=== PATIENT | female | born 1990 | race Caucasian/White ===

== ENCOUNTER 2018-01-08 17:16 | Emergency (ER) | payer MEDICAID ==
[~2018-01-08] VITALS: Ht 165.1 cm; Wt 166.5 kg
[2018-01-08 17:18] VITALS: BP 150/107
[2018-01-08] MEDS ORDERED: DEXAMETHASONE 4 MG TABLET ONE ×2 (18:17→18:18)
[2018-01-08] MEDS ORDERED: DEXAMETHASONE 4 MG TABLET PO ONE (18:30)
== END 2018-01-08 18:37 | disposition home or self-care (01) ==
LOC: ED 18:31
DX: J02.0 Streptococcal pharyngitis (principal); J45.909 Unspecified asthma, uncomplicated; Z90.49 Acquired absence of other specified parts of digestive tract
CPT/HCPCS: 87081; 87880; 99284

== ENCOUNTER 2018-01-25 12:07 | Emergency (ER) | payer MEDICAID ==
[~2018-01-25] VITALS: Ht 165.1 cm; Wt 165.0 kg
[2018-01-25] MEDS ORDERED: ONDANSETRON 2MG/ML, 2ML IVPush ONE (12:30)
[2018-01-25] MEDS ORDERED: SODIUM CHLORIDE 0.9% 1,000ML IVBOLUS ONE (12:30)
[2018-01-25] MEDS ORDERED: FAMOTIDINE 20 MG/2 ML IVP ONE (12:30)
[2018-01-25] MEDS ORDERED: SODIUM CHLORIDE FLUSH 10ML SYR IVF ONE (12:30)
[2018-01-25] MEDS ORDERED: ONDANSETRON 2MG/ML, 2ML ONE (12:37)
[2018-01-25] MEDS ORDERED: FAMOTIDINE 20 MG/2 ML ONE (12:37)
[2018-01-25 12:46] LABS: BASOPHILS # (AUTO) 0.05 x10^3/uL (0-0.1); BASOPHILS % (AUTO) 0 % (0-1); EOSINOPHILS # (AUTO) 0.26 x10^3/uL (0-0.4); EOSINOPHILS % (AUTO) 2 % (1-7); LYMPHOCYTES # (AUTO) 4.22 x10^3/uL (1-3.4); LYMPHOCYTES % (AUTO) 28 % (22-44); MD NO; MEAN CORPUSCULAR HEMOGLOBIN 26.5 pg (27.0-34.8); MEAN CORPUSCULAR VOLUME 80.3 fL (80-100); MONOCYTES # (AUTO) 0.86 x10^3/uL (0.2-0.8); MONOCYTES % (AUTO) 6 % (2-9); NEUTROPHILS # (AUTO) 9.81 x10^3/uL (1.8-6.8); NEUTROPHILS % (AUTO) 65 % (42-75); PLATELET COUNT 340 x10^3/uL (130-400); RED BLOOD COUNT 5.37 x10^6/uL (3.82-5.3); RED CELL DISTRIBUTION WIDTH 16.7 % (9.6-15.2)
[2018-01-25 12:58] LABS: ALANINE AMINOTRANSFERASE 23 U/L (12-78); ALBUMIN 3.2 g/dL (3.4-5.0); ANION GAP 11 mmol/L (5-15); CALCIUM 9.2 mg/dL (8.5-10.1); CHLORIDE 106 mmol/L (98-107); CREATININE 0.79 mg/dL (0.55-1.02)
[2018-01-25 13:03] LABS: ALKALINE PHOSPHATASE 162 U/L (45-117); BILIRUBIN,TOTAL 0.3 mg/dL (0.2-1.0); TOTAL PROTEIN 7.7 g/dL (6.4-8.2)
[2018-01-25 13:05] LABS: MICROSCOPIC NOT IND
[2018-01-25 13:09] LABS: CULTURE INDICATED? NO
[2018-01-25 13:25] VITALS: BP 126/46
== END 2018-01-25 14:13 | disposition home or self-care (01) ==
LOC: ED 13:30
DX: R10.84 Generalized abdominal pain (principal); R11.2 Nausea with vomiting, unspecified; R19.7 Diarrhea, unspecified
CPT/HCPCS: 36415; 80053; 81003; 83690; 84703; 85025; 93005; 96361; 96374; 96375; 99285; J2405; J7030; S0028

== ENCOUNTER 2018-01-25 20:17 | Emergency (ER) | payer MEDICAID ==
[~2018-01-25] VITALS: Ht 165.1 cm; Wt 168.8 kg
[2018-01-25] MEDS ORDERED: ONDANSETRON 2MG/ML, 2ML IVPush ONE (21:30)
[2018-01-25] MEDS ORDERED: MORPHINE SULFATE 4 MG/ML, 1ML IVPush PRN (21:30)
[2018-01-25 21:35] LABS: BASOPHILS # (AUTO) 0.04 x10^3/uL (0-0.1); BASOPHILS % (AUTO) 0 % (0-1); EOSINOPHILS # (AUTO) 0.18 x10^3/uL (0-0.4); EOSINOPHILS % (AUTO) 1 % (1-7); LYMPHOCYTES # (AUTO) 3.81 x10^3/uL (1-3.4); LYMPHOCYTES % (AUTO) 27 % (22-44); MD NO; MEAN CORPUSCULAR HEMOGLOBIN 26.1 pg (27.0-34.8); MEAN CORPUSCULAR HGB CONC 32.8 g/dL (32.4-35.8); MEAN CORPUSCULAR VOLUME 79.4 fL (80-100); MEAN PLATELET VOLUME 7.9 fL (7.4-10.4); MONOCYTES % (AUTO) 6 % (2-9); NEUTROPHILS % (AUTO) 66 % (42-75); PLATELET COUNT 310 x10^3/uL (130-400); RED BLOOD COUNT 4.76 x10^6/uL (3.82-5.3); RED CELL DISTRIBUTION WIDTH 16.9 % (9.6-15.2)
[2018-01-25 21:45] LABS: ALANINE AMINOTRANSFERASE 20 U/L (12-78); ALBUMIN 2.8 g/dL (3.4-5.0); ANION GAP 8 mmol/L (5-15); CALCIUM 8.8 mg/dL (8.5-10.1); CHLORIDE 107 mmol/L (98-107); CREATININE 0.69 mg/dL (0.55-1.02)
[2018-01-25 21:48] LABS: ALKALINE PHOSPHATASE 137 U/L (45-117); TOTAL PROTEIN 6.7 g/dL (6.4-8.2)
[2018-01-25 21:49] LABS: BILIRUBIN,TOTAL < 0.1 mg/dL (0.2-1.0)
[2018-01-25] MEDS ORDERED: OMNIPAQUE 350 MG/ML, 150 ML BOTTLE ONE (22:00)
[2018-01-25] MEDS ORDERED: ONDANSETRON 2MG/ML, 2ML ONE (22:30)
[2018-01-25] MEDS ORDERED: MORPHINE SULFATE 4 MG/ML, 1ML ONE (22:30)
[2018-01-25 23:27] VITALS: BP 107/68
== END 2018-01-25 23:31 | disposition home or self-care (01) ==
LOC: ED 22:43
DX: R10.31 Right lower quadrant pain (principal); R10.2 Pelvic and perineal pain; R10.32 Left lower quadrant pain; J45.909 Unspecified asthma, uncomplicated; Z90.49 Acquired absence of other specified parts of digestive tract; Z88.8 Allergy status to other drugs, medicaments and biological substances
CPT/HCPCS: 36415; 74177; 80053; 83690; 85025; 96374; 96375; 99285; J2405; Q9967

== ENCOUNTER 2018-04-05 21:23 | Emergency (ER) | payer MEDICAID ==
[~2018-04-05] VITALS: Ht 167.6 cm; Wt 168.0 kg
[2018-04-05 22:21] LABS: BASOPHILS # (AUTO) 0.07 x10^3/uL (0-0.1); BASOPHILS % (AUTO) 1 % (0-1); EOSINOPHILS # (AUTO) 0.19 x10^3/uL (0-0.4); EOSINOPHILS % (AUTO) 1 % (1-7); LYMPHOCYTES # (AUTO) 4.04 x10^3/uL (1-3.4); LYMPHOCYTES % (AUTO) 26 % (22-44); MD NO; MEAN CORPUSCULAR HEMOGLOBIN 26.3 pg (27.0-34.8); MEAN CORPUSCULAR VOLUME 79.7 fL (80-100); MEAN PLATELET VOLUME 7.7 fL (7.4-10.4); MONOCYTES # (AUTO) 0.68 x10^3/uL (0.2-0.8); MONOCYTES % (AUTO) 4 % (2-9); NEUTROPHILS % (AUTO) 68 % (42-75); PLATELET COUNT 321 x10^3/uL (130-400); RED BLOOD COUNT 4.83 x10^6/uL (3.82-5.3); RED CELL DISTRIBUTION WIDTH 17.5 % (9.6-15.2)
[2018-04-05 22:30] LABS: ANION GAP 9 mmol/L (5-15); CALCIUM 8.5 mg/dL (8.5-10.1); CHLORIDE 105 mmol/L (98-107); CREATININE 0.76 mg/dL (0.55-1.02)
[2018-04-05 22:35] LABS: MICROSCOPIC NOT IND
[2018-04-05 22:40] LABS: CULTURE INDICATED? NO
[2018-04-05] MEDS ORDERED: ONDANSETRON ODT 4 MG PO ONE (23:00)
[2018-04-05] MEDS ORDERED: ONDANSETRON ODT 4 MG ONE (23:19)
[2018-04-05 23:40] VITALS: BP 112/72
== END 2018-04-05 23:42 | disposition home or self-care (01) ==
LOC: ED 22:09
DX: R10.31 Right lower quadrant pain (principal); R10.32 Left lower quadrant pain; R11.2 Nausea with vomiting, unspecified; E66.01 Morbid (severe) obesity due to excess calories; J45.909 Unspecified asthma, uncomplicated; F17.210 Nicotine dependence, cigarettes, uncomplicated; Z68.43 Body mass index [BMI] 50.0-59.9, adult
CPT/HCPCS: 36415; 80048; 81003; 82040; 84703; 85025; 99284; Q0162

== ENCOUNTER 2018-04-06 14:39 | Emergency (ER) | payer MEDICAID ==
[~2018-04-06] VITALS: Ht 165.1 cm; Wt 168.0 kg
[2018-04-06] MEDS ORDERED: PROMETHAZINE 25 MG/ML, 1ML ONE (15:10)
[2018-04-06] MEDS ORDERED: KETOROLAC 30 MG/1 ML ONE (15:10)
[2018-04-06] MEDS ORDERED: OXYcodone/APAP 10/325MG TABLET ONE (15:11)
[2018-04-06] MEDS ORDERED: PROMETHAZINE 25 MG/ML, 1ML IM ONE (15:30)
[2018-04-06] MEDS ORDERED: OXYcodone/APAP 10/325MG TABLET PO ONE (15:30)
[2018-04-06] MEDS ORDERED: KETOROLAC 60 MG/2 ML IM ONE (15:30)
[2018-04-06 17:14] VITALS: BP 105/54
== END 2018-04-06 17:16 | disposition home or self-care (01) ==
LOC: ED 16:40
DX: N80.3 Endometriosis of pelvic peritoneum (principal); R10.31 Right lower quadrant pain; G89.29 Other chronic pain; E66.01 Morbid (severe) obesity due to excess calories; J45.909 Unspecified asthma, uncomplicated
CPT/HCPCS: 76830; 96372; 99284; J1885; J2550

== ENCOUNTER 2018-04-21 16:49 | Emergency (ER) | payer MEDICAID ==
[~2018-04-21] VITALS: Ht 165.1 cm; Wt 175.0 kg
[2018-04-21 17:30] LABS: MEAN CORPUSCULAR HEMOGLOBIN 26.4 pg (27.0-34.8); MEAN CORPUSCULAR HGB CONC 32.7 g/dL (32.4-35.8); MEAN CORPUSCULAR VOLUME 80.8 fL (80-100); MEAN PLATELET VOLUME 7.9 fL (7.4-10.4); PLATELET COUNT 366 x10^3/uL (130-400); RED BLOOD COUNT 4.93 x10^6/uL (3.82-5.3)
[2018-04-21] MEDS ORDERED: OXYcodone/APAP 10/325MG TABLET PO ONE (17:30)
[2018-04-21] MEDS ORDERED: ONDANSETRON ODT 4 MG PO ONE (17:30)
[2018-04-21] MEDS ORDERED: ONDANSETRON ODT 4 MG ONE (17:39)
[2018-04-21] MEDS ORDERED: OXYcodone/APAP 10/325MG TABLET ONE (17:39)
[2018-04-21 17:41] LABS: ALBUMIN 3.1 g/dL (3.4-5.0); ANION GAP 7 mmol/L (5-15); CALCIUM 8.9 mg/dL (8.5-10.1); CHLORIDE 109 mmol/L (98-107); CREATININE 0.82 mg/dL (0.55-1.02)
[2018-04-21 17:54] LABS: MD YES
[2018-04-21 17:58] LABS: BAND#(MANUAL) 0.35 x10^3/uL; BANDS%(MANUAL) 2 % (0-7); BASOS#(MANUAL) 0.18 x10^3/uL (0-0.1); BASOS% (MANUAL) 1 % (0-1); EOS#(MANUAL) 0.18 x10^3/uL (0.0-0.4); EOS% (MANUAL) 1 % (1-7); LYMPH#(MANUAL) 4.75 x10^3/uL (1-3.4); LYMPHS% (MANUAL) 27 % (22-44); MONOS#(MANUAL) 1.06 x10^3/uL (0.3-2.7); MONOS% (MANUAL) 6 % (2-9); REACTIVE LYMPHS % (MANUAL) 4 % (0-0); SEG#(MANUAL) 10.38 x10^3/uL (1.8-6.8); SEGS% (MANUAL) 59 % (42-75)
[2018-04-21 17:59] LABS: HYPOCHROMIA 1+
[2018-04-21 18:00] LABS: <PLATELET ESTIMATE> ADEQUATE; <PLT MORPHOLOGY> NORMAL PLT MORPH; POLYCHROMASIA 1+
[2018-04-21 18:01] LABS: MICROSCOPIC AUTO
[2018-04-21 18:16] LABS: CULTURE INDICATED? NO
[2018-04-21 19:07] VITALS: BP 101/48
== END 2018-04-21 19:49 | disposition home or self-care (01) ==
LOC: ED 19:46
DX: R10.84 Generalized abdominal pain (principal); E66.01 Morbid (severe) obesity due to excess calories
CPT/HCPCS: 36415; 74176; 80048; 81001; 82040; 84703; 85025; 93005; 99285; Q0162

== ENCOUNTER 2018-06-07 17:56 | Emergency (ER) | payer MEDICAID ==
[~2018-06-07] VITALS: Ht 165.1 cm; Wt 174.5 kg
[2018-06-07] MEDS ORDERED: OMNIPAQUE 300 MG/ML, 10ML VIAL ONE (18:00)
[2018-06-07] MEDS ORDERED: OXCA300T3 PO (18:24)
[2018-06-07] MEDS ORDERED: ALBU0.63 NEB (18:24)
[2018-06-07] MEDS ORDERED: VENL150C PO (18:24)
[2018-06-07] MEDS ORDERED: TRAZ150T62 PO (18:24)
[2018-06-07 18:39] LABS: BASOPHILS # (AUTO) 0.07 x10^3/uL (0-0.1); BASOPHILS % (AUTO) 0 % (0-1); EOSINOPHILS # (AUTO) 0.22 x10^3/uL (0-0.4); EOSINOPHILS % (AUTO) 1 % (1-7); LYMPHOCYTES # (AUTO) 3.58 x10^3/uL (1-3.4); LYMPHOCYTES % (AUTO) 23 % (22-44); MD NO; MEAN CORPUSCULAR HEMOGLOBIN 26.3 pg (27.0-34.8); MEAN CORPUSCULAR HGB CONC 33.2 g/dL (32.4-35.8); MEAN CORPUSCULAR VOLUME 79.3 fL (80-100); MEAN PLATELET VOLUME 7.9 fL (7.4-10.4); MONOCYTES # (AUTO) 0.82 x10^3/uL (0.2-0.8); MONOCYTES % (AUTO) 5 % (2-9); NEUTROPHILS # (AUTO) 10.81 x10^3/uL (1.8-6.8); NEUTROPHILS % (AUTO) 70 % (42-75); PLATELET COUNT 329 x10^3/uL (130-400); RED BLOOD COUNT 4.81 x10^6/uL (3.82-5.3); RED CELL DISTRIBUTION WIDTH 16.9 % (9.6-15.2)
[2018-06-07 18:49] LABS: ANION GAP 6 mmol/L (5-15); CHLORIDE 107 mmol/L (98-107); CREATININE 0.78 mg/dL (0.55-1.02)
[2018-06-07 18:53] LABS: TROPONIN I < 0.015 ng/mL (0.000-0.045)
[2018-06-07 18:54] LABS: D-DIMER 0.58 ug/mlFEU (0.00-0.52); INTERNATIONAL NORMALIZED RATIO 0.9 (0.93-1.1); PROTHROMBIN TIME 9.4 Seconds (9.6-11.5)
[2018-06-07 19:45] VITALS: BP 117/67
== END 2018-06-07 19:52 | disposition home or self-care (01) ==
LOC: ED 18:52
DX: R07.9 Chest pain, unspecified (principal); F19.10 Other psychoactive substance abuse, uncomplicated; F17.200 Nicotine dependence, unspecified, uncomplicated; E66.01 Morbid (severe) obesity due to excess calories; J45.909 Unspecified asthma, uncomplicated; F32.9 Major depressive disorder, single episode, unspecified; Z68.44 Body mass index [BMI] 60.0-69.9, adult
CPT/HCPCS: 36415; 71045; 71275; 80048; 82040; 83690; 84484; 84703; 85025; 85379; 85610; 85730; 93005; 99285; Q9967

== ENCOUNTER 2018-06-27 12:27 | Emergency (ER) | payer MEDICAID ==
[~2018-06-27] VITALS: Ht 165.1 cm; Wt 170.0 kg
[~2018-06-27 12:27] MED LIST: ALBU0.63 NEB; OXCA300T3 PO; TRAZ150T62 PO; VENL150C PO
[2018-06-27 14:05] LABS: BASOPHILS # (AUTO) 0.08 x10^3/uL (0-0.1); BASOPHILS % (AUTO) 1 % (0-1); EOSINOPHILS # (AUTO) 0.23 x10^3/uL (0-0.4); EOSINOPHILS % (AUTO) 2 % (1-7); LYMPHOCYTES # (AUTO) 3.45 x10^3/uL (1-3.4); LYMPHOCYTES % (AUTO) 26 % (22-44); MD NO; MEAN CORPUSCULAR HEMOGLOBIN 25.9 pg (27.0-34.8); MEAN CORPUSCULAR HGB CONC 32.5 g/dL (32.4-35.8); MEAN CORPUSCULAR VOLUME 79.5 fL (80-100); MEAN PLATELET VOLUME 7.9 fL (7.4-10.4); MONOCYTES # (AUTO) 0.77 x10^3/uL (0.2-0.8); MONOCYTES % (AUTO) 6 % (2-9); NEUTROPHILS # (AUTO) 8.97 x10^3/uL (1.8-6.8); NEUTROPHILS % (AUTO) 67 % (42-75); PLATELET COUNT 325 x10^3/uL (130-400); RED BLOOD COUNT 4.63 x10^6/uL (3.82-5.3); RED CELL DISTRIBUTION WIDTH 17.4 % (9.6-15.2)
[2018-06-27 14:11] LABS: INTERNATIONAL NORMALIZED RATIO 0.97 (0.93-1.1)
[2018-06-27 14:12] LABS: ALANINE AMINOTRANSFERASE 19 U/L (12-78); ANION GAP 6 mmol/L (5-15); CALCIUM 8.7 mg/dL (8.5-10.1); CHLORIDE 108 mmol/L (98-107); CREATININE 0.75 mg/dL (0.55-1.02)
[2018-06-27 14:19] LABS: ALKALINE PHOSPHATASE 135 U/L (45-117); BILIRUBIN,TOTAL 0.2 mg/dL (0.2-1.0); TOTAL PROTEIN 7.5 g/dL (6.4-8.2)
[2018-06-27] MEDS ORDERED: ACETAMINOPHEN 500 MG TABLET ONE (14:28)
[2018-06-27] MEDS ORDERED: ACETAMINOPHEN 500 MG TABLET PO ONE (14:30)
[2018-06-27 14:45] LABS: HCT (SEDRATE) 36.5 % (34.6-47.8)
[2018-06-27] MEDS ORDERED: HYDROmorphone 1 MG/ML, 1ML IV ONE (16:00)
[2018-06-27] MEDS ORDERED: HYDROmorphone 2 MG/ML, 1ML ONE (16:33)
[2018-06-27] MEDS ORDERED: GADOBUTROL 15 MMOL/15 ML VIAL ONE (17:04)
[2018-06-27 17:45] VITALS: BP 116/74
== END 2018-06-27 18:58 | disposition home or self-care (01) ==
LOC: ED 13:44
DX: R20.2 Paresthesia of skin (principal); G89.29 Other chronic pain; M54.5 Low back pain; Z68.44 Body mass index [BMI] 60.0-69.9, adult; E66.01 Morbid (severe) obesity due to excess calories; J45.909 Unspecified asthma, uncomplicated
CPT/HCPCS: 36415; 72110; 72158; 80053; 85025; 85610; 85651; 85730; 86141; 96374; 99285; A9585; J1170

== ENCOUNTER 2018-07-08 20:04 | Emergency (ER) | payer MEDICAID ==
[~2018-07-08] VITALS: Ht 165.1 cm; Wt 172.7 kg
[2018-07-08] MEDS ORDERED: METOCLOPRAMIDE 5 MG/ML, 2ML ONE (20:27)
[2018-07-08] MEDS ORDERED: SODIUM CHLORIDE FLUSH 10ML SYR IVF ONE (20:30)
[2018-07-08] MEDS ORDERED: SODIUM CHLORIDE 0.9% 1,000ML IVBOLUS ONE (20:30)
[2018-07-08] MEDS ORDERED: METOCLOPRAMIDE 5 MG/ML, 2ML IVPush ONE (20:30)
[2018-07-08 20:54] LABS: BASOPHILS # (AUTO) 0.19 x10^3/uL (0-0.1); BASOPHILS % (AUTO) 2 % (0-1); EOSINOPHILS # (AUTO) 0.23 x10^3/uL (0-0.4); EOSINOPHILS % (AUTO) 2 % (1-7); LYMPHOCYTES # (AUTO) 3.73 x10^3/uL (1-3.4); LYMPHOCYTES % (AUTO) 31 % (22-44); MD NO; MEAN CORPUSCULAR HEMOGLOBIN 26.5 pg (27.0-34.8); MEAN CORPUSCULAR HGB CONC 33.4 g/dL (32.4-35.8); MEAN CORPUSCULAR VOLUME 79.5 fL (80-100); MEAN PLATELET VOLUME 7.8 fL (7.4-10.4); MONOCYTES # (AUTO) 0.68 x10^3/uL (0.2-0.8); MONOCYTES % (AUTO) 6 % (2-9); NEUTROPHILS % (AUTO) 61 % (42-75); PLATELET COUNT 323 x10^3/uL (130-400); RED BLOOD COUNT 4.59 x10^6/uL (3.82-5.3); RED CELL DISTRIBUTION WIDTH 16.9 % (9.6-15.2)
[2018-07-08 21:06] LABS: ANION GAP 7 mmol/L (5-15); CHLORIDE 106 mmol/L (98-107); CREATININE 0.69 mg/dL (0.55-1.02)
[2018-07-08 21:24] VITALS: BP 132/78
[2018-07-08 21:33] LABS: MICROSCOPIC AUTO
[2018-07-08 21:37] LABS: CULTURE INDICATED? NO
== END 2018-07-08 22:17 | disposition home or self-care (01) ==
LOC: ED 21:57
DX: R11.2 Nausea with vomiting, unspecified (principal); N92.0 Excessive and frequent menstruation with regular cycle; G89.29 Other chronic pain; J45.909 Unspecified asthma, uncomplicated; E66.01 Morbid (severe) obesity due to excess calories; Z68.37 Body mass index [BMI] 37.0-37.9, adult
CPT/HCPCS: 36415; 80048; 81001; 82040; 84703; 85025; 96361; 96374; 99284; J2765; J7030

== ENCOUNTER 2018-07-12 19:56 | Emergency (ER) | payer MEDICAID ==
[~2018-07-12] VITALS: Ht 165.1 cm; Wt 176.0 kg
[2018-07-12] MEDS ORDERED: DULO60CA7 PO (20:21)
[2018-07-12] MEDS ORDERED: METOCLOPRAMIDE 5 MG/ML, 2ML ONE (20:46)
[2018-07-12 20:52] LABS: MICROSCOPIC NOT IND
[2018-07-12 20:52] LABS: BASOPHILS # (AUTO) 0.19 x10^3/uL (0-0.1); BASOPHILS % (AUTO) 1 % (0-1); EOSINOPHILS % (AUTO) 2 % (1-7); LYMPHOCYTES # (AUTO) 4.12 x10^3/uL (1-3.4); LYMPHOCYTES % (AUTO) 25 % (22-44); MD NO; MEAN CORPUSCULAR HEMOGLOBIN 25.6 pg (27.0-34.8); MEAN CORPUSCULAR HGB CONC 32.9 g/dL (32.4-35.8); MEAN CORPUSCULAR VOLUME 77.8 fL (80-100); MEAN PLATELET VOLUME 7.8 fL (7.4-10.4); MONOCYTES # (AUTO) 0.82 x10^3/uL (0.2-0.8); MONOCYTES % (AUTO) 5 % (2-9); NEUTROPHILS # (AUTO) 11.02 x10^3/uL (1.8-6.8); NEUTROPHILS % (AUTO) 67 % (42-75); PLATELET COUNT 369 x10^3/uL (130-400); RED BLOOD COUNT 5.18 x10^6/uL (3.82-5.3); RED CELL DISTRIBUTION WIDTH 17.6 % (9.6-15.2)
[2018-07-12 20:55] LABS: CULTURE INDICATED? NO
[2018-07-12] MEDS ORDERED: SODIUM CHLORIDE FLUSH 10ML SYR IVF ONE (21:00)
[2018-07-12] MEDS ORDERED: SODIUM CHLORIDE 0.9% 1,000ML IVBOLUS ONE (21:00)
[2018-07-12] MEDS ORDERED: METOCLOPRAMIDE 5 MG/ML, 2ML IVPush ONE (21:00)
[2018-07-12 21:01] LABS: ALBUMIN 3.4 g/dL (3.4-5.0); ANION GAP 6 mmol/L (5-15); CALCIUM 8.6 mg/dL (8.5-10.1); CHLORIDE 105 mmol/L (98-107); CREATININE 0.81 mg/dL (0.55-1.02)
[2018-07-12 21:05] LABS: TROPONIN I < 0.015 ng/mL (0.000-0.045)
[2018-07-12 21:13] VITALS: BP 125/65
== END 2018-07-12 22:19 | disposition home or self-care (01) ==
LOC: ED 20:26
DX: R11.2 Nausea with vomiting, unspecified (principal); R10.30 Lower abdominal pain, unspecified; R07.2 Precordial pain; N80.9 Endometriosis, unspecified; J45.909 Unspecified asthma, uncomplicated; E66.01 Morbid (severe) obesity due to excess calories; Z68.36 Body mass index [BMI] 36.0-36.9, adult
CPT/HCPCS: 36415; 71045; 71275; 80048; 81003; 82040; 84484; 84703; 85025; 85379; 93005; 96361; 96374; 99285; J2765; J7030

== ENCOUNTER 2018-07-15 15:10 | Emergency (ER) | payer MEDICAID ==
[~2018-07-15] VITALS: Ht 165.1 cm; Wt 175.0 kg
[~2018-07-15 15:10] MED LIST changes: +DULO60CA7 PO
[2018-07-15 15:59] LABS: BASOPHILS # (AUTO) 0.06 x10^3/uL (0-0.1); BASOPHILS % (AUTO) 1 % (0-1); EOSINOPHILS # (AUTO) 0.18 x10^3/uL (0-0.4); EOSINOPHILS % (AUTO) 1 % (1-7); LYMPHOCYTES # (AUTO) 3.26 x10^3/uL (1-3.4); LYMPHOCYTES % (AUTO) 26 % (22-44); MD NO; MEAN CORPUSCULAR HEMOGLOBIN 25.8 pg (27.0-34.8); MEAN CORPUSCULAR HGB CONC 32.9 g/dL (32.4-35.8); MEAN CORPUSCULAR VOLUME 78.7 fL (80-100); MEAN PLATELET VOLUME 8.1 fL (7.4-10.4); MONOCYTES # (AUTO) 0.86 x10^3/uL (0.2-0.8); MONOCYTES % (AUTO) 7 % (2-9); NEUTROPHILS # (AUTO) 8.43 x10^3/uL (1.8-6.8); NEUTROPHILS % (AUTO) 66 % (42-75); PLATELET COUNT 355 x10^3/uL (130-400); RED CELL DISTRIBUTION WIDTH 17.4 % (9.6-15.2)
[2018-07-15] MEDS ORDERED: SODIUM CHLORIDE FLUSH 10ML SYR IVF ONE (16:00)
[2018-07-15 16:09] LABS: ALANINE AMINOTRANSFERASE 19 U/L (12-78); ALBUMIN 3.1 g/dL (3.4-5.0); ANION GAP 8 mmol/L (5-15); CALCIUM 9.1 mg/dL (8.5-10.1); CHLORIDE 106 mmol/L (98-107); CREATININE 0.83 mg/dL (0.55-1.02)
[2018-07-15 16:13] LABS: ALKALINE PHOSPHATASE 143 U/L (45-117); BILIRUBIN,TOTAL 0.1 mg/dL (0.2-1.0); TOTAL PROTEIN 7.8 g/dL (6.4-8.2)
[2018-07-15 16:19] LABS: FREE T4 (FREE THYROXINE) 0.85 ng/dL (0.76-1.46); THYROID STIMULATING HORMONE 0.229 mIU/L (0.358-3.740)
[2018-07-15] MEDS ORDERED: PROMETHAZINE 25 MG/ML, 1ML ONE (16:25)
[2018-07-15] MEDS ORDERED: PROMETHAZINE 25 MG/ML, 1ML IM ONE (16:30)
[2018-07-15] MEDS ORDERED: SODIUM CHLORIDE 0.9%, 500ML IVBOLUS ONE (16:30)
[2018-07-15 17:12] VITALS: BP 106/64
== END 2018-07-15 17:22 | disposition home or self-care (01) ==
LOC: ED 16:54
DX: J45.31 Mild persistent asthma with (acute) exacerbation (principal); R11.2 Nausea with vomiting, unspecified; E66.01 Morbid (severe) obesity due to excess calories; F43.10 Post-traumatic stress disorder, unspecified; G89.29 Other chronic pain; Z90.89 Acquired absence of other organs; Z90.49 Acquired absence of other specified parts of digestive tract; Z68.44 Body mass index [BMI] 60.0-69.9, adult; Z79.899 Other long term (current) drug therapy
CPT/HCPCS: 36415; 71046; 80053; 84439; 84443; 84703; 85025; 93005; 96360; 96372; 99285; J2550; J7040

== ENCOUNTER 2018-08-06 14:48 | Emergency (ER) | payer MEDICAID ==
[~2018-08-06] VITALS: Ht 165.1 cm; Wt 177.2 kg
[2018-08-06 14:55] VITALS: BP 124/71
== END 2018-08-06 16:06 | disposition home or self-care (01) ==
LOC: ED 15:06
DX: M77.9 Enthesopathy, unspecified (principal); J45.909 Unspecified asthma, uncomplicated; E66.01 Morbid (severe) obesity due to excess calories; Z68.44 Body mass index [BMI] 60.0-69.9, adult
CPT/HCPCS: 99284

== ENCOUNTER 2018-09-12 23:00 | Emergency (ER) | payer MEDICAID ==
[~2018-09-12] VITALS: Ht 165.1 cm; Wt 177.1 kg
[2018-09-12] MEDS ORDERED: MAALOX/HYOSCYAMINE/LIDOCAINE 45 ML BTL PO ONE (23:30)
[2018-09-12] MEDS ORDERED: PANTOPRAZOLE 20MG TABLET PO ONE (23:30)
[2018-09-12] MEDS ORDERED: ONDANSETRON ODT 4 MG PO ONE (23:30)
[2018-09-12] MEDS ORDERED: MAALOX/HYOSCYAMINE/LIDOCAINE 45 ML BTL ONE (23:35)
[2018-09-12] MEDS ORDERED: ONDANSETRON ODT 4 MG ONE (23:35)
[2018-09-12] MEDS ORDERED: PANTOPRAZOLE 20MG TABLET ONE (23:35)
[2018-09-12 23:36] LABS: BASOPHILS % (AUTO) 1 % (0-1); EOSINOPHILS # (AUTO) 0.27 x10^3/uL (0-0.4); EOSINOPHILS % (AUTO) 2 % (1-7); LYMPHOCYTES # (AUTO) 4.78 x10^3/uL (1-3.4); LYMPHOCYTES % (AUTO) 32 % (22-44); MD NO; MEAN CORPUSCULAR HEMOGLOBIN 25.8 pg (27.0-34.8); MEAN CORPUSCULAR VOLUME 78.3 fL (80-100); MEAN PLATELET VOLUME 7.8 fL (7.4-10.4); MONOCYTES # (AUTO) 0.92 x10^3/uL (0.2-0.8); MONOCYTES % (AUTO) 6 % (2-9); NEUTROPHILS # (AUTO) 8.73 x10^3/uL (1.8-6.8); NEUTROPHILS % (AUTO) 59 % (42-75); PLATELET COUNT 343 x10^3/uL (130-400); RED BLOOD COUNT 4.91 x10^6/uL (3.82-5.3); RED CELL DISTRIBUTION WIDTH 16.7 % (9.6-15.2)
[2018-09-12 23:57] LABS: ALANINE AMINOTRANSFERASE 22 U/L (12-78); ANION GAP 11 mmol/L (5-15); CALCIUM 8.9 mg/dL (8.5-10.1); CHLORIDE 107 mmol/L (98-107); CREATININE 0.73 mg/dL (0.55-1.02)
[2018-09-12 23:59] LABS: ALKALINE PHOSPHATASE 148 U/L (45-117); BILIRUBIN,TOTAL 0.1 mg/dL (0.2-1.0); TOTAL PROTEIN 7.3 g/dL (6.4-8.2)
[2018-09-13 00:05] VITALS: BP 108/62
[2018-09-13 00:15] LABS: HCG UR SG 1.017 (1.003-1.030); MICROSCOPIC AUTO
[2018-09-13 00:18] LABS: CULTURE INDICATED? YES
== END 2018-09-13 00:56 | disposition home or self-care (01) ==
LOC: ED 09-13 00:50
DX: K29.00 Acute gastritis without bleeding (principal); E66.01 Morbid (severe) obesity due to excess calories; J45.909 Unspecified asthma, uncomplicated; F17.200 Nicotine dependence, unspecified, uncomplicated; Z88.5 Allergy status to narcotic agent; Z68.44 Body mass index [BMI] 60.0-69.9, adult
CPT/HCPCS: 36415; 80053; 81001; 81025; 83690; 85025; 87086; 99284; Q0162

== ENCOUNTER 2018-09-26 12:03 | Emergency (ER) | payer MEDICAID ==
[~2018-09-26] VITALS: Ht 165.1 cm; Wt 179.4 kg
[2018-09-26] MEDS ORDERED: ASPIRIN 81 MG TABLET CHEW PO ONE (12:30)
[2018-09-26 12:50] LABS: BASOPHILS # (AUTO) 0.07 x10^3/uL (0-0.1); BASOPHILS % (AUTO) 1 % (0-1); EOSINOPHILS # (AUTO) 0.29 x10^3/uL (0-0.4); EOSINOPHILS % (AUTO) 2 % (1-7); LYMPHOCYTES # (AUTO) 3.81 x10^3/uL (1-3.4); LYMPHOCYTES % (AUTO) 28 % (22-44); MD NO; MEAN CORPUSCULAR HEMOGLOBIN 25.9 pg (27.0-34.8); MEAN CORPUSCULAR VOLUME 78.5 fL (80-100); MEAN PLATELET VOLUME 7.7 fL (7.4-10.4); MONOCYTES % (AUTO) 5 % (2-9); NEUTROPHILS # (AUTO) 8.81 x10^3/uL (1.8-6.8); NEUTROPHILS % (AUTO) 64 % (42-75); PLATELET COUNT 331 x10^3/uL (130-400); RED BLOOD COUNT 4.97 x10^6/uL (3.82-5.3); RED CELL DISTRIBUTION WIDTH 16.5 % (9.6-15.2)
[2018-09-26 13:02] LABS: ALANINE AMINOTRANSFERASE 27 U/L (12-78); ANION GAP 7 mmol/L (5-15); CALCIUM 8.8 mg/dL (8.5-10.1); CHLORIDE 107 mmol/L (98-107)
[2018-09-26 13:07] LABS: ALKALINE PHOSPHATASE 200 U/L (45-117); BILIRUBIN,TOTAL 0.3 mg/dL (0.2-1.0); TOTAL PROTEIN 7.6 g/dL (6.4-8.2); TROPONIN I < 0.015 ng/mL (0.000-0.045)
[2018-09-26 13:12] LABS: THYROID STIMULATING HORMONE 0.728 mIU/L (0.358-3.740)
[2018-09-26] MEDS ORDERED: OXCA600T3 PO (13:19)
[2018-09-26] MEDS ORDERED: ASPIRIN 81 MG TABLET CHEW ONE (13:33)
[2018-09-26] MEDS ORDERED: ACETAMINOPHEN 500 MG TABLET ONE (13:33)
[2018-09-26] MEDS ORDERED: ACETAMINOPHEN 500 MG TABLET PO ONE (14:00)
[2018-09-26 14:28] VITALS: BP 116/80
== END 2018-09-26 14:40 | disposition home or self-care (01) ==
LOC: ED 12:31
DX: J20.9 Acute bronchitis, unspecified (principal); G89.29 Other chronic pain; F32.9 Major depressive disorder, single episode, unspecified; E66.01 Morbid (severe) obesity due to excess calories; Z68.44 Body mass index [BMI] 60.0-69.9, adult; Z90.89 Acquired absence of other organs; Z90.49 Acquired absence of other specified parts of digestive tract
CPT/HCPCS: 36415; 71045; 80053; 84439; 84443; 84484; 84703; 85025; 93005; 99285

== ENCOUNTER 2018-10-18 12:31 | Emergency (ER) | payer MEDICAID ==
[~2018-10-18] VITALS: Ht 165.1 cm; Wt 179.6 kg
[~2018-10-18 12:31] MED LIST changes: +OXCA600T3 PO
[2018-10-18] MEDS ORDERED: ASPIRIN 81 MG TABLET CHEW ONE (14:10)
[2018-10-18 14:19] VITALS: BP 134/87
[2018-10-18 14:26] LABS: BASOPHILS # (AUTO) 0.07 x10^3/uL (0-0.1); BASOPHILS % (AUTO) 1 % (0-1); EOSINOPHILS # (AUTO) 0.22 x10^3/uL (0-0.4); EOSINOPHILS % (AUTO) 2 % (1-7); LYMPHOCYTES # (AUTO) 2.94 x10^3/uL (1-3.4); LYMPHOCYTES % (AUTO) 28 % (22-44); MD NO; MEAN CORPUSCULAR HEMOGLOBIN 25.4 pg (27.0-34.8); MEAN CORPUSCULAR HGB CONC 32.8 g/dL (32.4-35.8); MEAN CORPUSCULAR VOLUME 77.5 fL (80-100); MONOCYTES # (AUTO) 0.71 x10^3/uL (0.2-0.8); MONOCYTES % (AUTO) 7 % (2-9); NEUTROPHILS # (AUTO) 6.74 x10^3/uL (1.8-6.8); NEUTROPHILS % (AUTO) 63 % (42-75); PLATELET COUNT 326 x10^3/uL (130-400); RED BLOOD COUNT 5.13 x10^6/uL (3.82-5.3); RED CELL DISTRIBUTION WIDTH 17.1 % (9.6-15.2)
[2018-10-18] MEDS ORDERED: ASPIRIN 81 MG TABLET CHEW PO ONE (14:30)
[2018-10-18 14:38] LABS: ALBUMIN 3.2 g/dL (3.4-5.0); ANION GAP 8 mmol/L (5-15); CALCIUM 8.3 mg/dL (8.5-10.1); CHLORIDE 110 mmol/L (98-107); CREATININE 0.74 mg/dL (0.55-1.02)
[2018-10-18 14:42] LABS: TROPONIN I < 0.015 ng/mL (0.000-0.045)
[2018-10-18] MEDS ORDERED: OMNIPAQUE 350 MG/ML, 150 ML BOTTLE ONE (15:15)
== END 2018-10-18 17:01 | disposition home or self-care (01) ==
LOC: ED 13:32
DX: J20.9 Acute bronchitis, unspecified (principal); G89.29 Other chronic pain; F32.9 Major depressive disorder, single episode, unspecified; E66.01 Morbid (severe) obesity due to excess calories; Z90.89 Acquired absence of other organs; Z90.49 Acquired absence of other specified parts of digestive tract; Z68.44 Body mass index [BMI] 60.0-69.9, adult
CPT/HCPCS: 36415; 71275; 80048; 82040; 83880; 84484; 85025; 93005; 99284; Q9967

== ENCOUNTER 2019-04-07 17:49 | Inpatient (IN) | payer MEDICAID ==
[~2019-04-07] VITALS: Ht 166.4 cm; Wt 184.4 kg
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
[2019-04-07] MEDS ORDERED: DULO60CA7 PO (18:58)
--- NOTE | 2019-04-07 19:24 | NUR ---
PT RESTING CALMLY, NAD, RESPIRATIONS EVEN AND UNLABORED, ROOM SECURED, SITTER AT DOORWAY FOR CONTINOUS MONITORING
--- NOTE | 2019-04-07 19:53 | NUR ---
PROVIDED PT WITH SANDWICH AND DRINK, SI PRECAUTIONS MAINTAINED, SITTER AT DOORWAY FOR CONTINOUS MONITORING
[2019-04-07 20:07] LABS: AMPHETAMINE SCREEN, URINE Negative (Negative); BARBITURATE SCREEN, URINE Negative (Negative); BENZODIAZEPINE SCREEN, URINE Negative (Negative); CANNABINOID SCREEN, URINE Negative (Negative); COCAINE SCREEN, URINE Negative (Negative); METHADONE SCREEN, URINE Negative (Negative); OPIATE SCREEN, URINE Negative (Negative)
--- NOTE | 2019-04-07 20:09 | NUR ---
REPORT GIVEN TO JESICA HOLDER. PT TO TRANSFER TO ED ROOM 38
--- NOTE | 2019-04-07 20:09 | NUR ---
LATE ENTRY 1924- PT DENIES SI/HI THOUGHT AT THIS TIME
[2019-04-07 20:19] LABS: ALANINE AMINOTRANSFERASE 20 U/L (12-78); ALBUMIN 3.2 g/dL (3.4-5.0); ANION GAP 7 mmol/L (5-15); CALCIUM 8.6 mg/dL (8.5-10.1); CHLORIDE 107 mmol/L (98-107); SALICYLATE LEVEL 3.6 mg/dL (2.8-20.0)
[2019-04-07 20:24] LABS: ALKALINE PHOSPHATASE 196 U/L (45-117); BILIRUBIN,TOTAL < 0.1 mg/dL (0.2-1.0); TOTAL PROTEIN 7.6 g/dL (6.4-8.2)
[2019-04-07 20:25] LABS: ACETAMINOPHEN < 2 mcg/mL (10-30)
[2019-04-07 20:33] LABS: BASOPHILS # (AUTO) 0.05 x10^3/uL (0-0.1); BASOPHILS % (AUTO) 0 % (0-1); EOSINOPHILS # (AUTO) 0.17 x10^3/uL (0-0.4); EOSINOPHILS % (AUTO) 1 % (1-7); LYMPHOCYTES # (AUTO) 3.65 x10^3/uL (1-3.4); LYMPHOCYTES % (AUTO) 23 % (22-44); MD NO; MEAN CORPUSCULAR HGB CONC 31.2 g/dL (32.4-35.8); MONOCYTES # (AUTO) 0.69 x10^3/uL (0.2-0.8); MONOCYTES % (AUTO) 4 % (2-9); NEUTROPHILS # (AUTO) 11.54 x10^3/uL (1.8-6.8); NEUTROPHILS % (AUTO) 72 % (42-75); PLATELET COUNT 364 x10^3/uL (130-400); RED BLOOD COUNT 5.34 x10^6/uL (3.82-5.3); RED CELL DISTRIBUTION WIDTH 18.1 % (9.6-15.2)
[2019-04-07] MEDS ORDERED: OLAN20TA3 PO ×2 (20:44)
[2019-04-07] MEDS ORDERED: TRAZ-137 PO (20:44)
--- NOTE | 2019-04-07 20:47 | NUR ---
PT DENIED ANY SUICIDAL IDEATION AT THIS TIME PT IS VERY COOPERATIVE PT IS IN [facility] WAITING FOR TELEPSYCHIC ASSESSMENT
--- NOTE | 2019-04-07 21:41 | NUR ---
sitter at door pt is resting in the rdraper no other c/o
[2019-04-07 22:36] LABS: MICROSCOPIC INDICATED
[2019-04-07 22:38] LABS: CULTURE INDICATED? NO
--- NOTE | 2019-04-08 01:10 | NUR ---
vss stable pt is sleeping sitter at door
--- NOTE | 2019-04-08 01:17 | NUR ---
rechecked vss hr is slight tachy up to 105 pt was sleeping but was able to awake pt is very cooperative
--- NOTE | 2019-04-08 03:45 | NUR ---
PT SLEEPING ON BACK IN [facility] AT THIS TIME. SITTER AT DOORWAY AND WILL CONT TO MONITOR.
--- NOTE | 2019-04-08 04:49 | NUR ---
PT AWAKE AND AWAITING TELEPSYCH EVAL. ROBOT IN ROOM.
--- NOTE | 2019-04-08 05:05 | NUR ---
Pt report from surya elena. This rn to assume care of pt. No immediate needs from pt. Roller doors in place. Sitter in hallway. Awaiting telepsych consult.
--- NOTE | 2019-04-08 05:09 | NUR ---
Soc updated on pt poc.
--- NOTE | 2019-04-08 05:56 | NUR ---
Pt to be on l2k. Awaiting adm order. Hospital bed ordered at this time.
--- NOTE | 2019-04-08 06:57 | NUR ---
Pt report to fidencio elena.
--- NOTE | 2019-04-08 07:00 | NUR ---
REPORT RECEIVED, CARE ASSUMED
--- NOTE | 2019-04-08 08:30 | NUR ---
PT AWAKE, COOPERATIVE WITH CARE. PT PROVIDED WITH MEAL TRAY. NO OTHER NEEDS EXPRESSED AT THIS TIME. PT CONT IN SECURE ROOM WITH SITTER AT DOOR. WAITING FOR FURTHER DISPOSITION.
[2019-04-08] MEDS ORDERED: ONDANSETRON 2MG/ML, 2ML IVPush PRN (09:00)
[2019-04-08] MEDS ORDERED: ONDANSETRON ODT 4 MG PO PRN (09:00)
[2019-04-08] MEDS ORDERED: OLANZAPINE PO SCH (09:00)
[2019-04-08] MEDS ORDERED: ALBUTEROL SULFATE 2.5 MG/3 ML NEB PRN (09:00)
--- NOTE | 2019-04-08 09:33 | NUR ---
TASK RN: PT TRANSFERRED TO HOSPITAL BED.
--- NOTE | 2019-04-08 09:54 | NUR ---
REPORT TO HEIDE Curtis RN.
--- NOTE | 2019-04-08 10:01 | NUR ---
RECEIVED REPORT FROM RAF MOONEY. NO WEIGHT OR HEIGHT ENTERED FOR PT. PT WEIGHED USING BED SCALE. PT GIVEN PUDDING PER PT REQUEST. PT HAS NO TEETH SO NEEDS SOFT DIET.
--- NOTE | 2019-04-08 10:31 | NUR ---
PER DR. DIAMOND, ZYPREXA 20 MG QHS TO BE GIVEN ONLY. THERE WAS AN ORDER FOR ZYPREXA [address] DIAMOND CANCELLED VERBALLY OVER THE PHONE AFTER THIS RN SAUGHT CLARIFICATION FOR THE ORDER.
[2019-04-08] MEDS: DULOXETINE 30 MG CAPSULE.DR PO SCH (10:59)
[2019-04-08] MEDS: OXCARBAZEPINE 300MG TABLET PO SCH ×2 (10:59→21:16)
--- NOTE | 2019-04-08 11:00 | NUR ---
PACKET FAXED TO [facility] AND [facility]
--- NOTE | 2019-04-08 12:15 | NUR ---
PT GIVEN SOFT DIET MEAL TRAY. PT BEING OBSERVED BY SITTER. 3 P'S ADDRESSED.
--- NOTE | 2019-04-08 13:32 | NUR ---
PT WATCHING TV IN NAD. VSS. PT BEING OBSERVED BY SITTER.
--- NOTE | 2019-04-08 14:09 | NUR ---
ZYPREXA DISCONTINUED PER SOC RECOMMENDATIONS FAXED OVER AND PT REQUESTS FOR GEODON. DR. DIAMOND AWARE AND OKAYED CANCELLING ZYPREXA AND DOING GEODON 20 MG BID. TELEPHONE ORDER READ BACK BY THIS RN.
--- NOTE | 2019-04-08 15:00 | NUR ---
Patient is resting comfortably in bed. PT BEING OBSERVED BY SITTER.
--- NOTE | 2019-04-08 16:58 | NUR ---
Patient is resting comfortably in bed. ATTEMPTED TO CALL DR. DIAMOND CONCERNING PT'S NEW COMPLAINT OF LOWER ABD PAIN AND NOT FINISHING HER ANTIBIOTICS FOR RECENT UTI. PT UNSURE OF NAME OF ANTIBIOTIC. DR. DIAMOND DID NOT ANSWER PHONE AND VOICEMAIL WAS FULL. WILL TRY AGAIN.
--- NOTE | 2019-04-08 17:27 | NUR ---
SBAR RPT TO JESICA CARMONA. PTS C/O ABD PAIN AND RECENT TREATMENT FOR UTI DISCUSSED. MATHEW TO F/U WITH [facility]
--- NOTE | 2019-04-08 17:48 | NUR ---
PT TO RM 260 VIA WHEELCHAIR, SITTER AND EMT TRANSFER. BELONGINGS BAGS X 2
[2019-04-08 17:53] VITALS: BP 148/88
[2019-04-08] MEDS ORDERED: NALT50TA PO (18:21)
[2019-04-08 19:43] VITALS: BP 112/73
[2019-04-08] MEDS ORDERED: OLANZAPINE 10 MG TABLET PO SCH (21:00)
[2019-04-08] MEDS: TRAZODONE 150MG TABLET PO SCH (21:15)
[2019-04-08] MEDS: ZIPRASIDONE 20MG CAPSULE PO SCH (21:16)
[2019-04-09 06:23] LABS: BASOPHILS # (AUTO) 0.07 x10^3/uL (0-0.1); BASOPHILS % (AUTO) 1 % (0-1); EOSINOPHILS # (AUTO) 0.21 x10^3/uL (0-0.4); EOSINOPHILS % (AUTO) 2 % (1-7); LYMPHOCYTES # (AUTO) 3.65 x10^3/uL (1-3.4); LYMPHOCYTES % (AUTO) 29 % (22-44); MD NO; MEAN CORPUSCULAR VOLUME 77.2 fL (80-100); MEAN PLATELET VOLUME 7.9 fL (7.4-10.4); MONOCYTES # (AUTO) 0.71 x10^3/uL (0.2-0.8); MONOCYTES % (AUTO) 6 % (2-9); NEUTROPHILS # (AUTO) 8.11 x10^3/uL (1.8-6.8); NEUTROPHILS % (AUTO) 64 % (42-75); PLATELET COUNT 366 x10^3/uL (130-400); RED BLOOD COUNT 5.09 x10^6/uL (3.82-5.3); RED CELL DISTRIBUTION WIDTH 17.9 % (9.6-15.2)
[2019-04-09] MEDS: ZIPRASIDONE 20MG CAPSULE PO SCH ×2 (08:14→19:42)
[2019-04-09] MEDS: DULOXETINE 30 MG CAPSULE.DR PO SCH (08:15)
[2019-04-09 08:19] VITALS: BP 120/76
[2019-04-09] MEDS: OXCARBAZEPINE 300MG TABLET PO SCH ×2 (08:43→19:42)
[2019-04-09 16:28] VITALS: BP 129/84
[2019-04-09 19:38] VITALS: BP 114/83
[2019-04-09] MEDS: TRAZODONE 150MG TABLET PO SCH (19:43)
[2019-04-10 06:19] LABS: BASOPHILS # (AUTO) 0.06 x10^3/uL (0-0.1); BASOPHILS % (AUTO) 1 % (0-1); EOSINOPHILS # (AUTO) 0.24 x10^3/uL (0-0.4); EOSINOPHILS % (AUTO) 2 % (1-7); LYMPHOCYTES # (AUTO) 3.58 x10^3/uL (1-3.4); LYMPHOCYTES % (AUTO) 30 % (22-44); MD NO; MEAN CORPUSCULAR HEMOGLOBIN 24.1 pg (27.0-34.8); MEAN CORPUSCULAR HGB CONC 31.6 g/dL (32.4-35.8); MEAN CORPUSCULAR VOLUME 76.5 fL (80-100); MEAN PLATELET VOLUME 7.8 fL (7.4-10.4); MONOCYTES # (AUTO) 0.69 x10^3/uL (0.2-0.8); MONOCYTES % (AUTO) 6 % (2-9); NEUTROPHILS # (AUTO) 7.57 x10^3/uL (1.8-6.8); NEUTROPHILS % (AUTO) 62 % (42-75); PLATELET COUNT 376 x10^3/uL (130-400); RED BLOOD COUNT 4.96 x10^6/uL (3.82-5.3); RED CELL DISTRIBUTION WIDTH 18.1 % (9.6-15.2)
[2019-04-10] MEDS: OXCARBAZEPINE 300MG TABLET PO SCH ×2 (08:07→20:26)
[2019-04-10] MEDS: DULOXETINE 30 MG CAPSULE.DR PO SCH (08:07)
[2019-04-10] MEDS: ZIPRASIDONE 20MG CAPSULE PO SCH ×2 (08:08→20:26)
[2019-04-10] MEDS: ACETAMINOPHEN 325 MG TABLET PO PRN (08:12)
[2019-04-10 08:20] VITALS: BP 119/80
[2019-04-10 19:28] VITALS: BP 125/83
[2019-04-10] MEDS: TRAZODONE 150MG TABLET PO SCH (20:25)
[2019-04-11] MEDS: DULOXETINE 30 MG CAPSULE.DR PO SCH (08:26)
[2019-04-11] MEDS: OXCARBAZEPINE 300MG TABLET PO SCH ×2 (08:26→20:20)
[2019-04-11] MEDS: ZIPRASIDONE 20MG CAPSULE PO SCH ×2 (08:26→20:20)
[2019-04-11 08:45] VITALS: BP 110/68
[2019-04-11] MEDS: ACETAMINOPHEN 325 MG TABLET PO PRN ×2 (11:47→19:15)
[2019-04-11 19:21] VITALS: BP 108/76
[2019-04-11] MEDS: TRAZODONE 150MG TABLET PO SCH (20:20)
[2019-04-12] MEDS: ACETAMINOPHEN 325 MG TABLET PO PRN ×3 (05:21→20:51)
[2019-04-12 07:57] VITALS: BP 106/74
[2019-04-12] MEDS: DULOXETINE 30 MG CAPSULE.DR PO SCH (08:07)
[2019-04-12] MEDS: ZIPRASIDONE 20MG CAPSULE PO SCH ×2 (08:08→20:41)
[2019-04-12] MEDS: OXCARBAZEPINE 300MG TABLET PO SCH ×2 (08:08→20:41)
[2019-04-12 19:37] VITALS: BP 108/69
[2019-04-12] MEDS: TRAZODONE 150MG TABLET PO SCH (20:41)
[2019-04-13 07:51] VITALS: BP 126/75
[2019-04-13] MEDS: OXCARBAZEPINE 300MG TABLET PO SCH ×2 (08:11→20:21)
[2019-04-13] MEDS: DULOXETINE 30 MG CAPSULE.DR PO SCH (08:11)
[2019-04-13] MEDS: ZIPRASIDONE 20MG CAPSULE PO SCH ×2 (08:11→20:22)
[2019-04-13] MEDS: ACETAMINOPHEN 325 MG TABLET PO PRN ×2 (08:18→16:40)
[2019-04-13 19:04] VITALS: BP 109/73
[2019-04-13] MEDS: TRAZODONE 150MG TABLET PO SCH (20:22)
[2019-04-14] MEDS: ACETAMINOPHEN 325 MG TABLET PO PRN ×2 (03:05→12:31)
[2019-04-14 07:45] VITALS: BP 126/92
[2019-04-14] MEDS: ZIPRASIDONE 20MG CAPSULE PO SCH ×2 (08:20→20:36)
[2019-04-14] MEDS: DULOXETINE 30 MG CAPSULE.DR PO SCH (08:20)
[2019-04-14] MEDS: OXCARBAZEPINE 300MG TABLET PO SCH ×2 (08:21→20:36)
[2019-04-14 19:28] VITALS: BP 112/73
[2019-04-14] MEDS: TRAZODONE 150MG TABLET PO SCH (20:36)
[2019-04-15] MEDS: DULOXETINE 30 MG CAPSULE.DR PO SCH (07:50)
[2019-04-15] MEDS: ZIPRASIDONE 20MG CAPSULE PO SCH (07:50)
[2019-04-15] MEDS: OXCARBAZEPINE 300MG TABLET PO SCH (07:51)
[2019-04-15 08:18] VITALS: BP 122/84
[2019-04-15] MEDS ORDERED: ZIPR20CA2 PO (08:57)
== END 2019-04-15 12:30 | disposition home or self-care (01) | DRG 760 ==
LOC: ED 23:59 → EDIP 04-08 06:38 → 2N 04-08 17:40
PROVIDERS: ADMIT Internal Medicine; ATTEND Internal Medicine
DX: D25.9 Leiomyoma of uterus, unspecified (principal); R45.851 Suicidal ideations; Z68.44 Body mass index [BMI] 60.0-69.9, adult; F43.10 Post-traumatic stress disorder, unspecified; G89.29 Other chronic pain; M54.9 Dorsalgia, unspecified; G47.00 Insomnia, unspecified; D72.829 Elevated white blood cell count, unspecified; F17.200 Nicotine dependence, unspecified, uncomplicated; E66.01 Morbid (severe) obesity due to excess calories; F32.9 Major depressive disorder, single episode, unspecified; J45.909 Unspecified asthma, uncomplicated; Z91.410 Personal history of adult physical and sexual abuse; Z91.5 Personal history of self-harm; Z90.49 Acquired absence of other specified parts of digestive tract
CPT/HCPCS: 36415; 80053; 80307; 81001; 84703; 85025; 99285; G0378

== ENCOUNTER 2019-04-16 02:13 | Emergency (ER) | payer MEDICAID ==
[~2019-04-16] VITALS: Ht 167.6 cm; Wt 190.0 kg
[~2019-04-16 02:13] MED LIST changes: +NALT50TA PO; +OLAN20TA3 PO; +TRAZ-137 PO; +ZIPR20CA2 PO
[2019-04-16] MEDS ORDERED: SODIUM CHLORIDE 0.9% 1,000ML IVBOLUS ONE (02:30)
[2019-04-16] MEDS ORDERED: SODIUM CHLORIDE FLUSH 10ML SYR IVF ONE (02:30)
[2019-04-16] MEDS ORDERED: ONDANSETRON ODT 4 MG PO ONE (02:30)
[2019-04-16] MEDS ORDERED: KETOROLAC 30 MG/1 ML IM ONE (02:30)
--- NOTE | 2019-04-16 02:37 | NUR ---
PT TO XRAY
[2019-04-16] MEDS ORDERED: KETOROLAC 30 MG/1 ML ONE (02:59)
[2019-04-16] MEDS ORDERED: ONDANSETRON 2MG/ML, 2ML ONE (02:59)
[2019-04-16 03:12] LABS: BASOPHILS # (AUTO) 0.06 x10^3/uL (0-0.1); BASOPHILS % (AUTO) 0 % (0-1); EOSINOPHILS # (AUTO) 0.17 x10^3/uL (0-0.4); EOSINOPHILS % (AUTO) 1 % (1-7); LYMPHOCYTES % (AUTO) 26 % (22-44); MD NO; MEAN CORPUSCULAR HEMOGLOBIN 24.2 pg (27.0-34.8); MEAN CORPUSCULAR HGB CONC 31.3 g/dL (32.4-35.8); MEAN CORPUSCULAR VOLUME 77.3 fL (80-100); MONOCYTES # (AUTO) 0.77 x10^3/uL (0.2-0.8); MONOCYTES % (AUTO) 6 % (2-9); NEUTROPHILS # (AUTO) 8.75 x10^3/uL (1.8-6.8); NEUTROPHILS % (AUTO) 66 % (42-75); PLATELET COUNT 334 x10^3/uL (130-400); RED BLOOD COUNT 4.75 x10^6/uL (3.82-5.3); RED CELL DISTRIBUTION WIDTH 18.5 % (9.6-15.2)
[2019-04-16 03:24] LABS: ALBUMIN 3.2 g/dL (3.4-5.0); ANION GAP 9 mmol/L (5-15); CALCIUM 8.6 mg/dL (8.5-10.1); CHLORIDE 106 mmol/L (98-107)
--- NOTE | 2019-04-16 03:27 | NUR ---
piv placed. fluids running. pt medicated for pain. Vss. Pt has no other needs at this time. call light in reach
[2019-04-16 03:28] VITALS: BP 122/65
[2019-04-16] MEDS ORDERED: ONDANSETRON 2MG/ML, 2ML IVPush ONE (03:30)
[2019-04-16] MEDS ORDERED: KETOROLAC 30 MG/1 ML IVPush ONE (03:30)
[2019-04-16 03:32] LABS: ALANINE AMINOTRANSFERASE 24 U/L (12-78); ALKALINE PHOSPHATASE 139 U/L (45-117); CREATININE 0.92 mg/dL (0.55-1.02); TOTAL PROTEIN 7.1 g/dL (6.4-8.2); TROPONIN I < 0.015 ng/mL (0.000-0.045)
--- NOTE | 2019-04-16 03:59 | NUR ---
Patient given discharge instructions and they have confirmed that they understand the instructions. Patient ambulatory with steady gait.
== END 2019-04-16 04:02 | disposition home or self-care (01) ==
LOC: ED 02:38
DX: R07.89 Other chest pain (principal); F17.200 Nicotine dependence, unspecified, uncomplicated; Z72.9 Problem related to lifestyle, unspecified; G89.29 Other chronic pain; J45.909 Unspecified asthma, uncomplicated; E66.01 Morbid (severe) obesity due to excess calories; Z68.44 Body mass index [BMI] 60.0-69.9, adult
CPT/HCPCS: 36415; 71046; 80053; 83690; 84484; 85025; 93005; 96374; 96375; 99284; J1885; J2405; J7030

== ENCOUNTER 2019-05-31 21:38 | Inpatient (IN) | payer MEDICAID ==
[~2019-05-31] VITALS: Ht 165.1 cm; Wt 156.6 kg
--- NOTE | 2019-05-31 21:48 | NUR ---
pt bib remsa stating "i feel like my meds aren;t working. i need to talk to someone." pt presents with multiple superficial lacs to bilat forearms. pt denies si/hi. pt states she cuts "just to feel pain." pt connected to monitors. vss. 1 bag of belonings locked in locker. awaiting edmd assessment.
[2019-05-31 22:53] LABS: BASOPHILS # (AUTO) 0.11 x10^3/uL (0-0.1); BASOPHILS % (AUTO) 1 % (0-1); EOSINOPHILS # (AUTO) 0.15 x10^3/uL (0-0.4); EOSINOPHILS % (AUTO) 1 % (1-7); LYMPHOCYTES # (AUTO) 3.96 x10^3/uL (1-3.4); LYMPHOCYTES % (AUTO) 29 % (22-44); MD NO; MEAN CORPUSCULAR HEMOGLOBIN 23.8 pg (27.0-34.8); MEAN CORPUSCULAR HGB CONC 31.4 g/dL (32.4-35.8); MEAN CORPUSCULAR VOLUME 75.8 fL (80-100); MEAN PLATELET VOLUME 7.7 fL (7.4-10.4); MONOCYTES # (AUTO) 0.63 x10^3/uL (0.2-0.8); MONOCYTES % (AUTO) 5 % (2-9); NEUTROPHILS # (AUTO) 9.05 x10^3/uL (1.8-6.8); NEUTROPHILS % (AUTO) 65 % (42-75); PLATELET COUNT 376 x10^3/uL (130-400); RED CELL DISTRIBUTION WIDTH 18.8 % (9.6-15.2)
[2019-05-31] MEDS ORDERED: LIDOCAINE 1%-EPI 1:100K, 20ML ONE (22:59)
[2019-05-31] MEDS ORDERED: LIDOCAINE 1%-EPI 1:100K, 20ML SQ ONE (23:00)
[2019-05-31 23:03] LABS: ALANINE AMINOTRANSFERASE 23 U/L (12-78); ALBUMIN 3.2 g/dL (3.4-5.0); ANION GAP 7 mmol/L (5-15); CALCIUM 8.9 mg/dL (8.5-10.1); CHLORIDE 108 mmol/L (98-107); CREATININE 0.73 mg/dL (0.55-1.02); SALICYLATE LEVEL 3.5 mg/dL (2.8-20.0)
[2019-05-31 23:05] LABS: ALKALINE PHOSPHATASE 157 U/L (45-117); BILIRUBIN,TOTAL 0.2 mg/dL (0.2-1.0); TOTAL PROTEIN 7.5 g/dL (6.4-8.2)
[2019-05-31 23:09] LABS: AMPHETAMINE SCREEN, URINE Negative (Negative); BARBITURATE SCREEN, URINE Negative (Negative); BENZODIAZEPINE SCREEN, URINE Negative (Negative); CANNABINOID SCREEN, URINE Negative (Negative); COCAINE SCREEN, URINE Negative (Negative); METHADONE SCREEN, URINE Negative (Negative); OPIATE SCREEN, URINE Negative (Negative)
--- NOTE | 2019-05-31 23:26 | NUR ---
PT RESTING IN [facility]. RESPS EVEN AND UNLABORED. SITTER MONITORING FROM [facility]. ROOM SECURE.
[2019-05-31] MEDS ORDERED: NEOSPORIN OINT. PKT 1 PACKET ONE (23:41)
--- NOTE | 2019-06-01 00:14 | NUR ---
PT PROVIDED SANDLUISICH AT THIS TIME.
[2019-06-01] MEDS ORDERED: LORazepam 1MG TABLET ONE (00:53)
--- NOTE | 2019-06-01 00:55 | NUR ---
TASK RN: PT CO ANXIETY. ERP AWARE. ORDERS RECEIVED. PT MEDICATED PER EMAR FOR ANXIETY. ROOM SECURE. SITTER PRESENT. PT CALM AND COOPERATIVE.
[2019-06-01] MEDS ORDERED: LORazepam 1MG TABLET PO ONE (01:00)
--- NOTE | 2019-06-01 01:48 | NUR ---
PT RESTING IN [facility]. RESPS EVEN AND UNLABORED. SITTER MONITORING FROM HALLWAY FOR SAFETY. ROOM REMAINS SECURE.
--- NOTE | 2019-06-01 02:12 | NUR ---
REPORT GIVEN TO PATRICK MOONEY. ALL QUESTIONS ANSWERED.
[2019-06-01 02:50] VITALS: BP 138/88
[2019-06-01 03:19] VITALS: BP 123/70
[2019-06-01] MEDS ORDERED: ALBUTEROL SULFATE 2.5 MG/3 ML NPPB PRN (03:30)
[2019-06-01 08:09] VITALS: BP 92/64
[2019-06-01] MEDS: ZIPRASIDONE 40MG CAPSULE PO SCH (08:46)
[2019-06-01] MEDS: ACETAMINOPHEN 325 MG TABLET PO PRN (08:47)
[2019-06-01] MEDS ORDERED: DULOXETINE 30 MG CAPSULE.DR PO SCH (09:00)
[2019-06-01] MEDS: LORazepam 1MG TABLET PO PRN ×2 (12:32→20:50)
[2019-06-01] MEDS: PRAZOSIN 2 MG CAPSULE PO SCH (20:22)
[2019-06-01] MEDS: ZIPRASIDONE 20MG CAPSULE PO SCH (20:45)
[2019-06-01] MEDS: OXCARBAZEPINE 300MG TABLET PO SCH (20:45)
[2019-06-01] MEDS ORDERED: OXCARBAZEPINE 150 MG TABLET PO SCH (21:00)
[2019-06-01 21:01] VITALS: BP 136/84
[2019-06-02] MEDS: ACETAMINOPHEN 325 MG TABLET PO PRN ×2 (04:37→20:07)
[2019-06-02 07:58] VITALS: BP 139/82
[2019-06-02] MEDS: ESCITALOPRAM 10MG TABLET PO SCH (08:14)
[2019-06-02] MEDS: ZIPRASIDONE 40MG CAPSULE PO SCH (08:14)
[2019-06-02] MEDS: OXCARBAZEPINE 300MG TABLET PO SCH ×2 (08:14→20:06)
[2019-06-02] MEDS: LORazepam 1MG TABLET PO PRN ×2 (09:22→20:07)
[2019-06-02] MEDS: PALIPERIDONE 3 MG TAB.ER.24 PO SCH (09:33)
[2019-06-02 19:54] VITALS: BP 135/78
[2019-06-02] MEDS: PRAZOSIN 2 MG CAPSULE PO SCH (20:06)
[2019-06-02] MEDS: ZIPRASIDONE 20MG CAPSULE PO SCH (20:07)
[2019-06-03] MEDS: LORazepam 1MG TABLET PO PRN ×3 (07:49→21:56)
[2019-06-03 07:50] VITALS: BP 116/75
[2019-06-03] MEDS: OXCARBAZEPINE 300MG TABLET PO SCH ×2 (07:58→21:56)
[2019-06-03] MEDS: ZIPRASIDONE 40MG CAPSULE PO SCH (07:59)
[2019-06-03] MEDS: ESCITALOPRAM 10MG TABLET PO SCH (07:59)
[2019-06-03] MEDS: PALIPERIDONE 3 MG TAB.ER.24 PO SCH (08:54)
[2019-06-03] MEDS ORDERED: ZIPRASIDONE 20 MG INJ IM ONE ×2 (14:30)
[2019-06-03] MEDS ORDERED: LORazepam 2 MG/ML, 1ML ONE (14:30)
[2019-06-03] MEDS ORDERED: LORazepam 1MG TABLET PO ONE (14:30)
[2019-06-03] MEDS: LORazepam 2 MG/ML, 1ML IM PRN (14:38)
[2019-06-03 19:21] VITALS: BP 126/85
[2019-06-03] MEDS: PRAZOSIN 2 MG CAPSULE PO SCH (21:55)
[2019-06-03] MEDS: ZIPRASIDONE 20MG CAPSULE PO SCH (21:56)
[2019-06-03] MEDS: TRAZODONE 150MG TABLET PO PRN (21:56)
[2019-06-03] MEDS ORDERED: ZIPRASIDONE 20 MG INJ IM PRN (22:00)
[2019-06-04 00:28] VITALS: BP 129/85
[2019-06-04 07:07] VITALS: BP 134/76
[2019-06-04] MEDS: PALIPERIDONE 3 MG TAB.ER.24 PO SCH (10:35)
[2019-06-04] MEDS: ZIPRASIDONE 40MG CAPSULE PO SCH (10:36)
[2019-06-04] MEDS: ESCITALOPRAM 10MG TABLET PO SCH (10:36)
[2019-06-04] MEDS: OXCARBAZEPINE 300MG TABLET PO SCH ×2 (10:37→21:17)
[2019-06-04 19:03] VITALS: BP 89/62
[2019-06-04] MEDS: TRAZODONE 150MG TABLET PO PRN (21:17)
[2019-06-04] MEDS: PRAZOSIN 2 MG CAPSULE PO SCH (21:17)
[2019-06-04] MEDS: ZIPRASIDONE 20MG CAPSULE PO SCH (21:17)
[2019-06-04] MEDS: LORazepam 1MG TABLET PO PRN (23:30)
[2019-06-05] MEDS: LORazepam 1MG TABLET PO PRN ×2 (08:07→15:49)
[2019-06-05] MEDS: PALIPERIDONE 3 MG TAB.ER.24 PO SCH ×2 (08:07→09:00)
[2019-06-05] MEDS: ESCITALOPRAM 10MG TABLET PO SCH ×2 (08:08→09:00)
[2019-06-05] MEDS: OXCARBAZEPINE 300MG TABLET PO SCH ×3 (08:08→23:02)
[2019-06-05] MEDS: ZIPRASIDONE 40MG CAPSULE PO SCH ×2 (08:08→09:00)
[2019-06-05 08:28] VITALS: BP 101/66
[2019-06-05] MEDS ORDERED: LORazepam 2 MG/ML, 1ML IM PRN (10:00)
[2019-06-05] MEDS ORDERED: ZIPRASIDONE 20 MG INJ IM ONE (10:00)
[2019-06-05] MEDS: LORazepam 2 MG/ML, 1ML IM PRN (10:10)
[2019-06-05 19:37] VITALS: BP 120/83
[2019-06-05] MEDS: PRAZOSIN 2 MG CAPSULE PO SCH (23:01)
[2019-06-05] MEDS: TRAZODONE 150MG TABLET PO PRN (23:01)
[2019-06-05] MEDS: ZIPRASIDONE 20MG CAPSULE PO SCH (23:02)
[2019-06-05] MEDS: CEPHALEXIN 500 MG CAPSULE PO SCH (23:02)
[2019-06-06 09:20] VITALS: BP 105/59
[2019-06-06] MEDS: CEPHALEXIN 500 MG CAPSULE PO SCH ×4 (09:21→20:22)
[2019-06-06] MEDS: ZIPRASIDONE 40MG CAPSULE PO SCH (09:24)
[2019-06-06] MEDS: ESCITALOPRAM 10MG TABLET PO SCH (09:25)
[2019-06-06] MEDS: PALIPERIDONE 3 MG TAB.ER.24 PO SCH (09:25)
[2019-06-06] MEDS: OXCARBAZEPINE 300MG TABLET PO SCH ×2 (09:25→20:20)
[2019-06-06] MEDS: LORazepam 1MG TABLET PO PRN ×2 (15:47→20:20)
[2019-06-06] MEDS: ACETAMINOPHEN 325 MG TABLET PO PRN (17:52)
[2019-06-06 19:23] VITALS: BP 105/69
[2019-06-06] MEDS: ZIPRASIDONE 20MG CAPSULE PO SCH (20:20)
[2019-06-06] MEDS: PRAZOSIN 2 MG CAPSULE PO SCH (20:21)
[2019-06-06] MEDS: TRAZODONE 150MG TABLET PO PRN (20:21)
[2019-06-07] MEDS: ACETAMINOPHEN 325 MG TABLET PO PRN ×2 (05:51→15:53)
[2019-06-07] MEDS: CEPHALEXIN 500 MG CAPSULE PO SCH ×4 (05:52→20:36)
[2019-06-07 08:21] VITALS: BP 120/79
[2019-06-07] MEDS: PALIPERIDONE 3 MG TAB.ER.24 PO SCH (09:36)
[2019-06-07] MEDS: ZIPRASIDONE 40MG CAPSULE PO SCH (09:36)
[2019-06-07] MEDS: ESCITALOPRAM 10MG TABLET PO SCH (09:37)
[2019-06-07] MEDS: OXCARBAZEPINE 300MG TABLET PO SCH ×2 (09:38→20:35)
[2019-06-07 19:07] VITALS: BP 125/81
[2019-06-07] MEDS: TRAZODONE 150MG TABLET PO PRN (20:35)
[2019-06-07] MEDS: ZIPRASIDONE 20MG CAPSULE PO SCH (20:36)
[2019-06-07] MEDS: LORazepam 1MG TABLET PO PRN (20:36)
[2019-06-07] MEDS: PRAZOSIN 2 MG CAPSULE PO SCH (20:37)
[2019-06-08] MEDS: CEPHALEXIN 500 MG CAPSULE PO SCH ×2 (06:13→10:09)
[2019-06-08 07:44] VITALS: BP 138/84
[2019-06-08] MEDS: ACETAMINOPHEN 325 MG TABLET PO PRN (07:45)
[2019-06-08] MEDS: OXCARBAZEPINE 300MG TABLET PO SCH (07:54)
[2019-06-08] MEDS: ZIPRASIDONE 40MG CAPSULE PO SCH (07:54)
[2019-06-08] MEDS: ESCITALOPRAM 10MG TABLET PO SCH (07:54)
[2019-06-08] MEDS: PALIPERIDONE 3 MG TAB.ER.24 PO SCH (07:55)
[2019-06-08] MEDS ORDERED: PRAZ2CAP2 PO (13:54)
[2019-06-08] MEDS ORDERED: ZIPR40CA2 PO (13:54)
[2019-06-08] MEDS ORDERED: PALI3TAB11 PO (13:54)
[2019-06-08] MEDS ORDERED: ESCI10TA PO (13:54)
[2019-06-08] MEDS ORDERED: ZIPR20CA2 PO (13:54)
[2019-06-08] MEDS ORDERED: CEPH-376 PO (14:53)
== END 2019-06-08 16:41 | disposition home or self-care (01) | DRG 603 ==
LOC: ED 23:59 → EDIP 06-01 00:50 → 2N 06-01 02:49
PROVIDERS: ADMIT Family Medicine; ATTEND Family Medicine
PROC: 0HQEXZZ Repair Left Lower Arm Skin, External Approach (ICD-10-PCS; principal; 2019-06-01)
PROC: 0HQDXZZ Repair Right Lower Arm Skin, External Approach (ICD-10-PCS; 2019-06-01)
DX: L03.114 Cellulitis of left upper limb (principal); Z68.43 Body mass index [BMI] 50.0-59.9, adult; R45.851 Suicidal ideations; L03.113 Cellulitis of right upper limb; F25.1 Schizoaffective disorder, depressive type; E61.1 Iron deficiency; E66.01 Morbid (severe) obesity due to excess calories; F17.210 Nicotine dependence, cigarettes, uncomplicated; F31.9 Bipolar disorder, unspecified; F43.10 Post-traumatic stress disorder, unspecified; F60.3 Borderline personality disorder; J45.20 Mild intermittent asthma, uncomplicated; S51.811A Laceration without foreign body of right forearm, initial encounter; S51.812A Laceration without foreign body of left forearm, initial encounter; R71.8 Other abnormality of red blood cells; Z78.1 Physical restraint status; Z79.899 Other long term (current) drug therapy; Z90.49 Acquired absence of other specified parts of digestive tract; X78.1XXA Intentional self-harm by knife, initial encounter; Y93.89 Activity, other specified; Y92.89 Other specified places as the place of occurrence of the external cause; Y99.8 Other external cause status
CPT/HCPCS: 13121; 13122; 36415; 80053; 80307; 81025; 82728; 83540; 83550; 85025; 87070; 87077; 87186; 87205; 93005; 99285; G0378; J3486; J2060

== ENCOUNTER 2019-09-19 01:22 | Emergency (ER) | payer MEDICAID ==
[~2019-09-19] VITALS: Ht 165.1 cm; Wt 172.0 kg
[~2019-09-19 01:22] MED LIST changes: +CEPH-376 PO; +ESCI10TA PO; +PALI3TAB11 PO; +PRAZ2CAP2 PO; +ZIPR40CA2 PO
[2019-09-19] MEDS ORDERED: NEOSPORIN OINT. PKT 1 PACKET ONE (01:41)
[2019-09-19 01:59] LABS: BASOPHILS % (AUTO) 1 % (0-1); EOSINOPHILS # (AUTO) 0.19 x10^3/uL (0-0.4); EOSINOPHILS % (AUTO) 2 % (1-7); LYMPHOCYTES # (AUTO) 4.03 x10^3/uL (1-3.4); LYMPHOCYTES % (AUTO) 31 % (22-44); MD NO; MEAN CORPUSCULAR HEMOGLOBIN 25.2 pg (27.0-34.8); MEAN CORPUSCULAR HGB CONC 31.9 g/dL (32.4-35.8); MEAN PLATELET VOLUME 8.2 fL (7.4-10.4); MONOCYTES % (AUTO) 6 % (2-9); NEUTROPHILS # (AUTO) 7.96 x10^3/uL (1.8-6.8); NEUTROPHILS % (AUTO) 61 % (42-75); PLATELET COUNT 349 x10^3/uL (130-400); RED BLOOD COUNT 5.06 x10^6/uL (3.82-5.3); RED CELL DISTRIBUTION WIDTH 18.6 % (9.6-15.2)
[2019-09-19 02:12] LABS: ALANINE AMINOTRANSFERASE 26 U/L (12-78); ALBUMIN 3.2 g/dL (3.4-5.0); ANION GAP 7 mmol/L (5-15); CALCIUM 8.8 mg/dL (8.5-10.1); CHLORIDE 107 mmol/L (98-107); SALICYLATE LEVEL 2.9 mg/dL (2.8-20.0)
[2019-09-19 02:18] LABS: ALKALINE PHOSPHATASE 118 U/L (45-117); BILIRUBIN,TOTAL 0.3 mg/dL (0.2-1.0); CREATININE 0.83 mg/dL (0.55-1.02); TOTAL PROTEIN 7.3 g/dL (6.4-8.2)
[2019-09-19 02:59] LABS: AMPHETAMINE SCREEN, URINE Negative (Negative); BARBITURATE SCREEN, URINE Negative (Negative); BENZODIAZEPINE SCREEN, URINE Negative (Negative); CANNABINOID SCREEN, URINE Negative (Negative); COCAINE SCREEN, URINE Negative (Negative); METHADONE SCREEN, URINE Negative (Negative); OPIATE SCREEN, URINE Positive (Negative)
[2019-09-19] MEDS ORDERED: ACETAMINOPHEN 325 MG TABLET ONE (05:03)
--- NOTE | 2019-09-19 05:14 | NUR ---
PT RESTING IN BED WITH SITTER AT DOOR, PT ROOM IS SI SECURED.
[2019-09-19] MEDS ORDERED: ACETAMINOPHEN 325 MG TABLET PO ONE (05:30)
--- NOTE | 2019-09-19 05:49 | NUR ---
Referral packet faxed to [facility], [facility], [facility], and [facility]
--- NOTE | 2019-09-19 06:10 | NUR ---
GENARO denied per Michelle due to MRSA and she is a 1:1
--- NOTE | 2019-09-19 06:24 | NUR ---
PT RESTING IN BED WITH SITTER AT DOOR, PT ROOM IS SI SECURED.
--- NOTE | 2019-09-19 07:01 | NUR ---
BEDSIDE REPORT FROM TALHA MOONEY, PT RESTING IN HOSPITAL BED IN SECURED ROOM WITH SITTER AT DOORWAY. NO NEEDS AT THIS TIME
--- NOTE | 2019-09-19 08:20 | NUR ---
PT RESTING IN BED, SITTER AT DOORWAY. PT GIVEN BREAKFAST TRAY
--- NOTE | 2019-09-19 09:09 | NUR ---
PT RESTING IN HOSPITAL BED, BREAKFAST TRAY GIVEN. NO NEEDS AT THIS TIME.
--- NOTE | 2019-09-19 10:04 | NUR ---
L ARM WOUND CHECKED AND REDRESSED. C/D/I, NO S/SXS OF INFECTION
--- NOTE | 2019-09-19 10:56 | NUR ---
PT RESTING IN HOSPITAL BED WITH SITTER AT DOORWAY, WATCHING TV. NO NEEDS AT THIS TIME
--- NOTE | 2019-09-19 12:17 | NUR ---
THROUGHPUT: PATIENT DENIES AT [facility] PER [facility].
--- NOTE | 2019-09-19 12:18 | NUR ---
PT GIVEN LUNCH TRAY. PT RESTING IN HOSPITAL BED WITH SITTER AT DOORWAY, WATCHING TV. NO NEEDS AT THIS TIME
--- NOTE | 2019-09-19 13:08 | NUR ---
PT RESTING IN HOSPITAL BED WITH SITTER AT DOORWAY, WATCHING TV. NO NEEDS AT THIS TIME
--- NOTE | 2019-09-19 14:00 | NUR ---
PT RESTING IN HOSPITAL BED WITH SITTER AT DOORWAY, WATCHING TV. NO NEEDS AT THIS TIME
--- NOTE | 2019-09-19 15:04 | NUR ---
PT RESTING IN HOSPITAL BED WITH SITTER AT DOORWAY, WATCHING TV. NO NEEDS AT THIS TIME
--- NOTE | 2019-09-19 15:58 | NUR ---
DRESSING "FELL OFF" PER PT, WOUND CLEANED AND NEW DRESSING APPLIED.
--- NOTE | 2019-09-19 16:52 | NUR ---
PT RESTING IN HOSPITAL BED, EQUAL CHEST RISE AND FALL. SITTER AT DOORWAY OF SECURED ROOM
--- NOTE | 2019-09-19 17:50 | NUR ---
PT GIVEN DINNER TRAY. PT RESTING IN HOSPITAL BED, EQUAL CHEST RISE AND FALL. SITTER AT DOORWAY OF SECURED ROOM
--- NOTE | 2019-09-19 20:14 | NUR ---
RECIEVED REPORT FROM TALHA. ASSUMED CARE FOR PT. JONES IN [place].
--- NOTE | 2019-09-19 21:30 | NUR ---
PT SLEEPING, RESP EVEN AND UNLABORED. SITTER IN [place]
--- NOTE | 2019-09-19 23:30 | NUR ---
PT SLEEPING, RESP EVEN AND UNLABORED. SITTER IN [place]
--- NOTE | 2019-09-20 01:24 | NUR ---
PT SLEEPING. SITTER IN [place]
--- NOTE | 2019-09-20 03:34 | NUR ---
THE DRESSING CAME OFF OF PT'S FOREARM. SHE HAS NUMEROUS VERTICLE CUTS ACROSS THE L FOREARM. MOST ARE CLEAN, DRY AND APPROXIMATED. 2 OF THE WOUNDS ARE NOT APPROXIMATED. NO S/S OF INFECTION. WOUNDS CLEANED WITH WOUND CLEANSER AND NS. WRAPPED WITH GAUZE. PT USED THE BATHROOM AND WENT BACK TO BED.
--- NOTE | 2019-09-20 03:41 | NUR ---
V/S WNL. AFEBRILE. TEMP 98.0. WILL CONTINUE TO MONITOR. SITTER AT DOOR
--- NOTE | 2019-09-20 05:56 | NUR ---
PT SLEEPING. SITTER IN [place]
--- NOTE | 2019-09-20 07:08 | NUR ---
Received report from JESICA Kimble. Assumed care of pt.
--- NOTE | 2019-09-20 08:26 | NUR ---
Pt ate breakfast and now resting comfortably. No complaints. Sitter in place.
--- NOTE | 2019-09-20 09:31 | NUR ---
Pt sleeping, quiet and comfortable. No complaints. Sitter in place.
--- NOTE | 2019-09-20 10:30 | NUR ---
Pt resting comfortably in bed, no complaints. Sitter in place.
--- NOTE | 2019-09-20 11:27 | NUR ---
Pt awake and resting quietly in bed. Not in distress, no complaints. Sitter outside door.
--- NOTE | 2019-09-20 12:31 | NUR ---
Pt complained of her drsg falling off again. RN cleaned wounds with dermal wound cleanser and re-dressed it with non-stick dressing. Self-harm cuts are in various stages of healing. Some are more approximated than others. No s/s of infection, no oozing noted. Pt is afebrile.
--- NOTE | 2019-09-20 13:18 | NUR ---
Pt is awake and resting comfortably in bed. No complaints. Sitter within view.
--- NOTE | 2019-09-20 14:20 | NUR ---
TASK RN - PT RESTING ON BED. NADN. RESP EVEN AND UNLABORED. SITTER IN PLACE. ROOM SECURED.
--- NOTE | 2019-09-20 14:54 | NUR ---
After RN returned from lunch, per sitter, pt's dressing came off again. Pt was seen fiddling with her gauze before it came loose. RN will leave it MUNA for now and monitor pt closely.
--- NOTE | 2019-09-20 15:23 | NUR ---
Pt awake, resting comfortably in bed. Behavior is appropriate at this time. No complaints. Sitter in place.
--- NOTE | 2019-09-20 16:29 | NUR ---
Pt is resting comfortably and quietly in bed. No c/o pain on her arm. Sitter at door.
--- NOTE | 2019-09-20 17:05 | NUR ---
Meal tray given to pt.
--- NOTE | 2019-09-20 17:30 | NUR ---
Pt finished her meal and is sitting up watching tv in bed. Sitter in place.
--- NOTE | 2019-09-20 18:28 | NUR ---
Pt resting in bed comfortably. Sitter in place.
[2019-09-20] MEDS ORDERED: PALI546S IM (19:26)
[2019-09-20] MEDS ORDERED: PRAZOSIN 2 MG CAPSULE PO ONE (20:00)
[2019-09-20] MEDS ORDERED: OXCARBAZEPINE 150 MG TABLET PO ONE (20:00)
[2019-09-20] MEDS ORDERED: ESCITALOPRAM 10MG TABLET PO ONE (20:00)
[2019-09-20] MEDS ORDERED: ZIPRASIDONE 20MG CAPSULE PO ONE (20:00)
[2019-09-20] MEDS ORDERED: ZIPRASIDONE 20MG CAPSULE ONE (20:34)
--- NOTE | 2019-09-20 20:58 | NUR ---
MEDICATED. COMPLIANT. WATCHING TV.
--- NOTE | 2019-09-20 21:18 | NUR ---
UP TO USE THE HALLWAY PHONE. 1:1 W/ THE PT.
--- NOTE | 2019-09-20 22:07 | NUR ---
IN BED. SAFE. RESP ARE EVEN AND NON-LABORED. NO DISTRESS. NO C/O. 1:1 AT THE DOOR.
--- NOTE | 2019-09-20 22:44 | NUR ---
IN BED. SAFE. RESP ARE EVEN AND NON-LABORED. NO DISTRESS. NO C/O. 1:1 AT THE DOOR.
--- NOTE | 2019-09-20 23:41 | NUR ---
IN BED. SAFE. RESP ARE EVEN AND NON-LABORED. NO DISTRESS. NO C/O. 1:1 AT THE DOOR.
--- NOTE | 2019-09-21 01:06 | NUR ---
IN BED. SAFE. RESP ARE EVEN AND NON-LABORED. NO DISTRESS. NO C/O. 1:1 AT THE DOOR.
--- NOTE | 2019-09-21 02:08 | NUR ---
IN BED. SAFE. RESP ARE EVEN AND NON-LABORED. NO DISTRESS. NO C/O. 1:1 AT THE DOOR.
--- NOTE | 2019-09-21 02:42 | NUR ---
IN BED. SAFE. RESP ARE EVEN AND NON-LABORED. NO DISTRESS. NO C/O. 1:1 AT THE DOOR.
--- NOTE | 2019-09-21 03:44 | NUR ---
IN BED. SAFE. RESP ARE EVEN AND NON-LABORED. NO DISTRESS. NO C/O. 1:1 AT THE DOOR.
--- NOTE | 2019-09-21 04:52 | NUR ---
IN BED. SAFE. RESP ARE EVEN AND NON-LABORED. NO DISTRESS. NO C/O. 1:1 AT THE DOOR.
--- NOTE | 2019-09-21 06:18 | NUR ---
IN BED AWAKE. SAFE. RESP ARE EVEN AND NON-LABORED. NO DISTRESS. NO C/O. 1:1 AT THE DOOR.
--- NOTE | 2019-09-21 06:29 | NUR ---
ROUNDS COMPLETED. PT IN BED. MOVEMENT NOTE. NO DISTRESS. ABLE TO MOVE SELF IN BED. NO C/O AT THIS TIME.
--- NOTE | 2019-09-21 07:00 | NUR ---
REPORT RECIEVED FROM SUSANNA RN, CARE ASSUMED OF PT. PT RESTING IN BED AT THIS TIME. PT SLEEPING ON BED, VISIBLE CHEST RISE AND FALL SITTER IN VIEW OF PT
[2019-09-21 08:26] VITALS: BP 108/58
--- NOTE | 2019-09-21 08:43 | NUR ---
BREAKFAST TRAY PROVIDED TO PT. PT GRATEFUL, COOPERATIVE WITH CARE.
--- NOTE | 2019-09-21 09:41 | NUR ---
PT CONTINUES TO REST IN BED, NAD NOTED, SI PRECAUTION REMAIN IN PLACE PT DENIES NEEDS AT THIS TIME
--- NOTE | 2019-09-21 11:07 | NUR ---
PT CONTINUES TO REST ON BED, NAD NOTED, NO NEEDS AT THIS TIME
--- NOTE | 2019-09-21 12:44 | NUR ---
PT RESTING IN BED. NO COMPLAINT OR NEEDS VERBALIZED. PT GIVEN LUNCH TRAY AND ATE 100 PERCENT OF MEAL, SI PRECAUTIONS REMAIN IN PLACE
--- NOTE | 2019-09-21 14:05 | NUR ---
LEGAL HOLD DISCONTINUED PER TEODORA MOREL. PT GIVEN DISCHARGE INSTRUCTIONS, UNDERSTANDING STATES, ALL BELONGINGS RETURNED TO PT. PT STABLE ON DISCHARGE DAY
== END 2019-09-21 14:19 | disposition home or self-care (01) ==
LOC: ED 01:37
DX: F32.1 Major depressive disorder, single episode, moderate (principal); S51.812A Laceration without foreign body of left forearm, initial encounter; F25.8 Other schizoaffective disorders; R45.851 Suicidal ideations; X83.8XXA Intentional self-harm by other specified means, initial encounter; Y93.89 Activity, other specified; Y92.89 Other specified places as the place of occurrence of the external cause; Y99.8 Other external cause status
CPT/HCPCS: 36415; 80053; 80307; 84703; 85025; 99284

== ENCOUNTER 2020-01-17 13:42 | Emergency (ER) | payer MEDICAID ==
[~2020-01-17] VITALS: Ht 167.6 cm; Wt 170.0 kg
[~2020-01-17 13:42] MED LIST changes: +ESCI20TA10 PO; +MIRT15TA PO; +PALI546S IM; -TRAZ-137 PO; +TRAZ-175 PO
[2020-01-17 14:37] LABS: BASOPHILS # (AUTO) 0.06 x10^3/uL (0-0.1); BASOPHILS % (AUTO) 0 % (0-1); EOSINOPHILS % (AUTO) 2 % (1-7); LYMPHOCYTES # (AUTO) 3.55 x10^3/uL (1-3.4); LYMPHOCYTES % (AUTO) 26 % (22-44); MD NO; MEAN CORPUSCULAR HEMOGLOBIN 24.4 pg (27.0-34.8); MEAN CORPUSCULAR HGB CONC 31.9 g/dL (32.4-35.8); MEAN CORPUSCULAR VOLUME 76.6 fL (80-100); MONOCYTES # (AUTO) 0.52 x10^3/uL (0.2-0.8); MONOCYTES % (AUTO) 4 % (2-9); NEUTROPHILS # (AUTO) 9.55 x10^3/uL (1.8-6.8); NEUTROPHILS % (AUTO) 69 % (42-75); PLATELET COUNT 339 x10^3/uL (130-400); RED BLOOD COUNT 4.93 x10^6/uL (3.82-5.3); RED CELL DISTRIBUTION WIDTH 17.3 % (9.6-15.2)
--- NOTE | 2020-01-17 14:41 | NUR ---
UA SENT. PT +ST, STS TOOK 1 20 MG OXY IN AM AND 5 10 MG OXYS LATER. HEARING VOICES "THEYR'E TELLING ME TO KILL MYSELF". LAB WAS AT BEDSIDE, ECG COMPLETE. VSS, O2 STABLE. PEARRL, 4 MM. A&OX4 GCS 15. ON LEGAL HOLD. IN PSYCH ROOM IN [facility]. CALL FUENTES IN REACH. CTM.
[2020-01-17 14:50] LABS: CHLORIDE 109 mmol/L (98-107)
--- NOTE | 2020-01-17 14:55 | NUR ---
TOLD CHARGE NEED SITTER.
[2020-01-17 14:59] LABS: ALANINE AMINOTRANSFERASE 21 U/L (12-78); ALKALINE PHOSPHATASE 139 U/L (45-117); ANION GAP 9 mmol/L (5-15); BILIRUBIN,TOTAL 0.2 mg/dL (0.2-1.0); CALCIUM 8.6 mg/dL (8.5-10.1); CREATININE 0.74 mg/dL (0.55-1.02); SALICYLATE LEVEL 2.6 mg/dL (2.8-20.0); TOTAL PROTEIN 7.2 g/dL (6.4-8.2)
[2020-01-17 15:08] LABS: AMPHETAMINE SCREEN, URINE Negative (Negative); BARBITURATE SCREEN, URINE Negative (Negative); BENZODIAZEPINE SCREEN, URINE Negative (Negative); CANNABINOID SCREEN, URINE Positive (Negative); COCAINE SCREEN, URINE Negative (Negative); METHADONE SCREEN, URINE Negative (Negative); OPIATE SCREEN, URINE Negative (Negative)
--- NOTE | 2020-01-17 15:08 | NUR ---
PT MOVED TO ROOM 03 PER RADHA, SIDE RAILS UP X2. ROOM IS SECURE. SITTER OUTSIDE ROOM.
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
[2020-01-17] MEDS ORDERED: HYDR50CA2 PO (15:45)
[2020-01-17] MEDS ORDERED: PRAZ1CAP2 PO (15:45)
[2020-01-17] MEDS ORDERED: PALI546S INJ (15:45)
[2020-01-17] MEDS ORDERED: ZIPR40CA3 PO (15:45)
[2020-01-17] MEDS ORDERED: PRAZ5CAP2 PO (15:45)
[2020-01-17] MEDS ORDERED: ACAM333T7 PO (15:45)
--- NOTE | 2020-01-17 17:33 | NUR ---
PT SLEEPING ON GURNEY, EVEN CHEST RISE & FALL NOTED, SIDE RAILS UP X2. SITTER OUTSIDE ROOM.
--- NOTE | 2020-01-17 18:09 | NUR ---
PT ENDORSED TO BREAK RN: SHERI
--- NOTE | 2020-01-17 19:00 | NUR ---
PACKET FAXED TO [facility] AND [facility]
--- NOTE | 2020-01-17 19:05 | NUR ---
DENIED BY [facility]
--- NOTE | 2020-01-17 19:46 | NUR ---
PT DOZING ON BED W/ LIGHTS DIMMED. C/O LE.
--- NOTE | 2020-01-17 19:54 | NUR ---
VO DR HUGHES: TYLENOL 1000MG PO FOR LE PAIN.
[2020-01-17] MEDS ORDERED: ACETAMINOPHEN 500 MG TABLET ONE (19:55)
--- NOTE | 2020-01-17 19:55 | NUR ---
CAMPRAL 333MG TAB X2 ORDERED FROM PHARMACY
--- NOTE | 2020-01-17 19:58 | NUR ---
TYLENOL 1000MG PO GIVEN.
[2020-01-17] MEDS ORDERED: MIRTAZAPINE 15 MG TABLET ONE (20:46)
[2020-01-17] MEDS ORDERED: ZIPRASIDONE 20MG CAPSULE ONE (20:46)
[2020-01-17] MEDS: ACAMPROSATE 333 MG TABLET.DR PO SCH ×2 (20:53→22:37)
[2020-01-17] MEDS: ZIPRASIDONE 40MG CAPSULE PO SCH (20:54)
--- NOTE | 2020-01-17 20:56 | NUR ---
PT MEDICATED PER EMAR. PT REPORTS IMPROVEMENT IN LE PAIN. STATES "I'M TIRED". CLOSED WATER BOTTLE PROVIDED. REFUSED EXTRA BLANKETS, AT THIS TIME.
[2020-01-17] MEDS ORDERED: MIRTAZAPINE 15 MG TABLET PO SCH (21:00)
--- NOTE | 2020-01-17 21:07 | NUR ---
HOSPITAL BED BROUGHT TO PT. PT AMBULATORY TO & FROM [facility] W/OUT INCIDENT; GAIT STEADY.
--- NOTE | 2020-01-17 21:19 | NUR ---
SANDWICH & CHIPS DELIVERED TO PT.
--- NOTE | 2020-01-17 22:37 | NUR ---
CAMPRAL AFTERNOON DOSE GIVEN AT 2055. PM DOSE SCHEDULED AT 2100. PM DOSE NOT GIVEN. AFTERNOON DOSE GIVEN LATE DUE TO ACTIVITY IN ED, UNRELATED TO PT.
--- NOTE | 2020-01-17 23:11 | NUR ---
PT REPORT TO JESICA DIAZ. PT CARE TRANSFERRED. PT ASLEEP ON BED. SITTER OUTSIDE ROOM.
--- NOTE | 2020-01-18 02:31 | NUR ---
Pt resting comfortably. Bathroom offered to pt but declined. Will continue to monior
[2020-01-18 06:39] VITALS: BP 120/72
--- NOTE | 2020-01-18 06:58 | NUR ---
REPORT FROM NOC RN RECIEVED, PT RESTING COMFORTABLY AT THIS TIME ON HOSPITAL BED, NAD NOTED, VISIBLE CHEST RISE AND FALL NOTED. BREAKFAST TRAY ORDRERED
[2020-01-18] MEDS ORDERED: ZIPRASIDONE 20MG CAPSULE ONE (07:19)
[2020-01-18] MEDS: ZIPRASIDONE 40MG CAPSULE PO SCH (08:56)
[2020-01-18] MEDS: ACAMPROSATE 333 MG TABLET.DR PO SCH (08:56)
[2020-01-18] MEDS ORDERED: ESCITALOPRAM 10MG TABLET PO SCH (09:00)
--- NOTE | 2020-01-18 09:06 | NUR ---
PT MEDICATED PER JAN, GIVEN BREAKFAST TRAY, STATES NOT HUNGRY AT THIS TIME, PT DENIES OTHER NEEDS AT THIS TIME, NAD NOTED
--- NOTE | 2020-01-18 11:01 | NUR ---
Radha deng in [facility] - 01/18/20 at 1102 by SHANEKA REPORT CALLED TO GELY, PT TO LEAVE APPROX 1300
--- NOTE | 2020-01-18 11:02 | NUR ---
REPORT CALLED TO JACQUI HONG TO LEAVE APPROX 1300 Addendum: 01/18/[address] YONY STEELE MD
--- NOTE | 2020-01-18 11:53 | NUR ---
PT PROVIDED WITH MEAL TRAY. NO OTHER NEEDS AT THIS TIME, SI PRECAUTIONS REMAIN IN PLACE
--- NOTE | 2020-01-18 13:15 | NUR ---
Received bedside report from JESICA Avery. All questions answered, assuming care of pt at this time.
--- NOTE | 2020-01-18 14:11 | NUR ---
Patient given discharge instructions and they have confirmed that they understand the instructions. Patient ambulatory with steady gait and left with all personal belongings with NURSE INTERN to mental health facility. No needs expressed.
== END 2020-01-18 14:16 ==
LOC: ED 22:06
DX: T40.2X2A Poisoning by other opioids, intentional self-harm, initial encounter (principal); T14.91XA Suicide attempt, initial encounter; F17.200 Nicotine dependence, unspecified, uncomplicated; Y92.89 Other specified places as the place of occurrence of the external cause
CPT/HCPCS: 36415; 80053; 80307; 84703; 85025; 93005; 99284

== ENCOUNTER 2020-03-30 22:28 | Emergency (ER) | payer MEDICAID ==
[~2020-03-30] VITALS: Ht 167.6 cm; Wt 150.0 kg
[~2020-03-30 22:28] MED LIST changes: +ACAM333T7 PO; +HYDR50CA2 PO; +PALI546S INJ; +PRAZ1CAP2 PO; +PRAZ5CAP2 PO; +ZIPR40CA3 PO
[2020-03-30 22:31] VITALS: BP 136/98
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
[2020-03-30 23:34] LABS: AMPHETAMINE SCREEN, URINE Negative (Negative); BARBITURATE SCREEN, URINE Negative (Negative); BENZODIAZEPINE SCREEN, URINE Negative (Negative); CANNABINOID SCREEN, URINE Negative (Negative); COCAINE SCREEN, URINE Negative (Negative); METHADONE SCREEN, URINE Negative (Negative); OPIATE SCREEN, URINE Negative (Negative)
[2020-03-30 23:47] LABS: BASOPHILS # (AUTO) 0.06 x10^3/uL (0-0.1); BASOPHILS % (AUTO) 0 % (0-1); EOSINOPHILS # (AUTO) 0.18 x10^3/uL (0-0.4); EOSINOPHILS % (AUTO) 1 % (1-7); LYMPHOCYTES # (AUTO) 4.16 x10^3/uL (1-3.4); LYMPHOCYTES % (AUTO) 28 % (22-44); MD NO; MEAN CORPUSCULAR HEMOGLOBIN 24.3 pg (27.0-34.8); MEAN CORPUSCULAR HGB CONC 31.8 g/dL (32.4-35.8); MEAN CORPUSCULAR VOLUME 76.5 fL (80-100); MONOCYTES # (AUTO) 0.67 x10^3/uL (0.2-0.8); MONOCYTES % (AUTO) 5 % (2-9); NEUTROPHILS # (AUTO) 9.67 x10^3/uL (1.8-6.8); NEUTROPHILS % (AUTO) 66 % (42-75); PLATELET COUNT 346 x10^3/uL (130-400); RED BLOOD COUNT 4.71 x10^6/uL (3.82-5.3)
[2020-03-30 23:57] LABS: ANION GAP 5 mmol/L (5-15); CALCIUM 8.7 mg/dL (8.5-10.1); CHLORIDE 110 mmol/L (98-107); CREATININE 0.81 mg/dL (0.55-1.02)
[2020-03-30 23:58] LABS: ALANINE AMINOTRANSFERASE 19 U/L (12-78); ALBUMIN 2.9 g/dL (3.4-5.0)
[2020-03-31 00:02] LABS: ALKALINE PHOSPHATASE 132 U/L (45-117); BILIRUBIN,TOTAL 0.1 mg/dL (0.2-1.0); TOTAL PROTEIN 7.1 g/dL (6.4-8.2)
--- NOTE | 2020-03-31 00:32 | NUR ---
SOC UPDATED ON PT, WILL SEE PT AND CALL BACK
--- NOTE | 2020-03-31 01:15 | NUR ---
PER SOC PT TO BE DC HOME
--- NOTE | 2020-03-31 02:34 | NUR ---
PT PROVIDED WITH BELONGINGS AND MILK STS SHE WILL CALL HER DAD FOR A RIDE HOME
== END 2020-03-31 02:42 | disposition home or self-care (01) ==
LOC: ED 23:02
DX: F31.31 Bipolar disorder, current episode depressed, mild (principal); F31.9 Bipolar disorder, unspecified; F25.0 Schizoaffective disorder, bipolar type; R45.851 Suicidal ideations; G89.29 Other chronic pain; J45.909 Unspecified asthma, uncomplicated; F17.200 Nicotine dependence, unspecified, uncomplicated; Z90.49 Acquired absence of other specified parts of digestive tract; Z90.89 Acquired absence of other organs
CPT/HCPCS: 36415; 80053; 80307; 84703; 85025; 99283

== ENCOUNTER 2020-05-27 08:09 | Emergency (ER) | payer MEDICAID ==
[~2020-05-27] VITALS: Ht 167.6 cm; Wt 171.0 kg
[2020-05-27 08:52] LABS: BASOPHILS # (AUTO) 0.05 x10^3/uL (0-0.1); BASOPHILS % (AUTO) 0 % (0-1); EOSINOPHILS # (AUTO) 0.25 x10^3/uL (0-0.4); EOSINOPHILS % (AUTO) 2 % (1-7); LYMPHOCYTES # (AUTO) 4.13 x10^3/uL (1-3.4); LYMPHOCYTES % (AUTO) 25 % (22-44); MD NO; MEAN CORPUSCULAR HEMOGLOBIN 24.6 pg (27.0-34.8); MEAN CORPUSCULAR HGB CONC 31.4 g/dL (32.4-35.8); MEAN CORPUSCULAR VOLUME 78.3 fL (80-100); MEAN PLATELET VOLUME 7.9 fL (7.4-10.4); MONOCYTES # (AUTO) 0.87 x10^3/uL (0.2-0.8); MONOCYTES % (AUTO) 5 % (2-9); NEUTROPHILS # (AUTO) 11.32 x10^3/uL (1.8-6.8); NEUTROPHILS % (AUTO) 68 % (42-75); PLATELET COUNT 355 x10^3/uL (130-400); RED BLOOD COUNT 4.94 x10^6/uL (3.82-5.3); RED CELL DISTRIBUTION WIDTH 17.7 % (9.6-15.2)
[2020-05-27 08:55] LABS: ALBUMIN 3.2 g/dL (3.4-5.0); ANION GAP 9 mmol/L (5-15); CALCIUM 8.7 mg/dL (8.5-10.1); CHLORIDE 106 mmol/L (98-107); CREATININE 0.85 mg/dL (0.55-1.02); SALICYLATE LEVEL 3.4 mg/dL (2.8-20.0)
--- NOTE | 2020-05-27 09:17 | NUR ---
JOSE RUSS, FRIEND CALLED EMS D/T PT CUTTING WRIST WITH TUNA CAN, PT EXPRESSED SI, STATES TO EMS WAS ATTEMPTING TO HARM SELF. PT WITH HX OF SAME. PT WITH NOTED SCARS TO BILAT ARMS FROM PREVIOUS CUTS, PT WITH SUPERFICIAL LAC TO WRIST AREA ON ADMIT, EMT TO DRESS. PT ALSO WITH HX BIPOLAR, SCHIZ. PT COOPERATIVE WITH STAFF ON ARRIVAL, PT TO SECURE RM AT THIS TIME, ALL BELONGINGS IN BAG AND PLACED IN LOCKER. SITTER IN PLACE
[2020-05-27 09:19] LABS: FREE T4 (FREE THYROXINE) 1.05 ng/dL (0.76-1.46)
[2020-05-27 09:47] LABS: AMPHETAMINE SCREEN, URINE Negative (Negative); BARBITURATE SCREEN, URINE Negative (Negative); BENZODIAZEPINE SCREEN, URINE Negative (Negative); CANNABINOID SCREEN, URINE Negative (Negative); COCAINE SCREEN, URINE Negative (Negative); METHADONE SCREEN, URINE Negative (Negative); OPIATE SCREEN, URINE Negative (Negative)
[2020-05-27] MEDS ORDERED: hydrOXyzine 10MG TABLET PO ONE (10:00)
[2020-05-27] MEDS ORDERED: hydrOXyzine 10MG TABLET ONE (10:04)
--- NOTE | 2020-05-27 10:13 | NUR ---
PT GIVEN MEAL TRAY, MEDICATED WITH PRN ANXIETY MEDICATION PER REQUEST. AWAITING PSYCH FUEL CELL DESIGNER TO EVAL.
[2020-05-27] MEDS ORDERED: NEOSPORIN OINT. PKT 1 PACKET ONE (10:42)
--- NOTE | 2020-05-27 12:49 | NUR ---
PT RESTING ON RADHA Mckenna THIS TIME, SOCKS AND WARM BLANKET PROVIDED, PT DENIES OTHER NEEDS AT THIS TIME Addendum: 05/27/20 at 1326 by HANNAH WAYNE NAVA COMPLETED, PT TO REMAIN LH AT THIS TIME.
--- NOTE | 2020-05-27 15:00 | NUR ---
PT TO HOSPITAL BED AT THIS TIME
--- NOTE | 2020-05-27 18:29 | NUR ---
PT GIVEN MEAL TRAY, NAD NOTED, NO OTHER NEEDS AT THIS TIME. MED SLIP SENT TO PHARMACY FOR PM MEDICATIONS
--- NOTE | 2020-05-27 19:00 | NUR ---
Report from Gena MOONEY.
--- NOTE | 2020-05-27 20:31 | NUR ---
MAURICE RN: PACKET FAXED TO [facility], [facility], [facility], AND [facility].
[2020-05-27] MEDS ORDERED: MIRTAZAPINE 15 MG TABLET PO SCH (21:00)
[2020-05-27] MEDS ORDERED: ZIPRASIDONE 40MG CAPSULE PO SCH (21:00)
[2020-05-27] MEDS ORDERED: LITHIUM CARBONATE 300 MG CAPSULE PO SCH (21:00)
[2020-05-27] MEDS ORDERED: PRAZOSIN 2 MG CAPSULE PO SCH (21:00)
--- NOTE | 2020-05-27 22:40 | NUR ---
Michelle from [facility] to accept patient, pt TBP disease form sent to [facility].
--- NOTE | 2020-05-27 22:50 | NUR ---
REPORT GIVEN TO ZACARIAS MOONEY AT [facility].
[2020-05-27 22:53] VITALS: BP 108/56
[2020-05-28] MEDS ORDERED: ESCITALOPRAM 10MG TABLET PO SCH (09:00)
[2020-05-28] MEDS ORDERED: LITH300C PO (18:04)
[2020-05-28] MEDS ORDERED: ALBU18HF PO (18:07)
[2020-05-28] MEDS ORDERED: TOPI25CA3 PO (18:08)
== END 2020-05-28 00:31 | disposition other institution (70) ==
LOC: ED 08:19
DX: S50.811A Abrasion of right forearm, initial encounter (principal); R45.851 Suicidal ideations; F32.9 Major depressive disorder, single episode, unspecified; F20.9 Schizophrenia, unspecified; E66.01 Morbid (severe) obesity due to excess calories; Z90.89 Acquired absence of other organs; Z68.44 Body mass index [BMI] 60.0-69.9, adult; Z90.49 Acquired absence of other specified parts of digestive tract; Z88.8 Allergy status to other drugs, medicaments and biological substances; Z88.2 Allergy status to sulfonamides; X78.8XXA Intentional self-harm by other sharp object, initial encounter; Y93.89 Activity, other specified; Y92.89 Other specified places as the place of occurrence of the external cause; Y99.8 Other external cause status
CPT/HCPCS: 36415; 80048; 80178; 80307; 82040; 84439; 84443; 84703; 85025; 99284

== ENCOUNTER 2020-05-27 22:39 | Inpatient (IN) | payer MEDICAID ==
[~2020-05-27] VITALS: Ht 165.1 cm; Wt 171.3 kg
[2020-05-27] MEDS ORDERED: POLYETHYLENE GLYCOL 17 GM PACKET PO PRN (23:00)
[2020-05-27] MEDS ORDERED: ACETAMINOPHEN 325 MG TABLET PO PRN (23:00)
[2020-05-27] MEDS ORDERED: ONDANSETRON ODT 4 MG PO PRN (23:00)
[2020-05-27] MEDS ORDERED: BISACODYL 10 MG SUPP PR PRN (23:00)
[2020-05-27] MEDS ORDERED: DOCUSATE 100 MG CAPSULE PO PRN (23:00)
[2020-05-27 23:10] VITALS: BP 155/75
[2020-05-28 00:10] VITALS: BP 155/75
[2020-05-28 05:46] LABS: ALBUMIN 2.7 g/dL (3.4-5.0)
[2020-05-28 06:14] LABS: BILIRUBIN,TOTAL 0.2 mg/dL (0.2-1.0); CHOL/HDL RATIO 6.6; FREE T4 (FREE THYROXINE) 1.03 ng/dL (0.76-1.46); LDL/HDL RATIO 3.8 (0.5-3.0); TOTAL PROTEIN 6.3 g/dL (6.4-8.2)
[2020-05-28 06:27] LABS: BILIRUBIN, DIRECT 0.1 mg/dL (0.1-0.2); BILIRUBIN,INDIRECT 0.1 mg/dL (0.0-2.0)
[2020-05-28 06:42] LABS: MICROSCOPIC AUTO
[2020-05-28 07:16] VITALS: BP 113/74
[2020-05-28] MEDS: ESCITALOPRAM 10MG TABLET PO SCH (09:18)
[2020-05-28] MEDS: ACAMPROSATE 333 MG TABLET.DR PO SCH ×3 (09:18→20:39)
[2020-05-28] MEDS: ZIPRASIDONE 40MG CAPSULE PO SCH ×2 (09:19→20:39)
[2020-05-28] MEDS: LITHIUM CARBONATE 300 MG CAPSULE PO SCH ×2 (09:20→20:38)
[2020-05-28] MEDS ORDERED: LITH300C PO (18:04)
[2020-05-28] MEDS ORDERED: ALBU18HF PO (18:07)
[2020-05-28] MEDS ORDERED: TOPI25CA3 PO (18:08)
[2020-05-28 19:33] VITALS: BP 124/80
[2020-05-28] MEDS: PRAZOSIN 2 MG CAPSULE PO SCH (20:39)
[2020-05-28] MEDS: MIRTAZAPINE 15 MG TABLET PO SCH (20:39)
[2020-05-29 07:46] VITALS: BP 113/72
[2020-05-29] MEDS: LITHIUM CARBONATE 300 MG CAPSULE PO SCH ×2 (08:35→21:11)
[2020-05-29] MEDS: ZIPRASIDONE 40MG CAPSULE PO SCH ×2 (08:35→21:10)
[2020-05-29] MEDS: ESCITALOPRAM 10MG TABLET PO SCH (08:35)
[2020-05-29] MEDS: ACAMPROSATE 333 MG TABLET.DR PO SCH ×3 (08:35→21:10)
[2020-05-29 19:30] VITALS: BP 130/85
[2020-05-29] MEDS: PRAZOSIN 2 MG CAPSULE PO SCH (21:10)
[2020-05-29] MEDS: MIRTAZAPINE 15 MG TABLET PO SCH (21:11)
[2020-05-30 07:34] VITALS: BP 108/75
[2020-05-30] MEDS: ZIPRASIDONE 40MG CAPSULE PO SCH ×2 (08:27→21:20)
[2020-05-30] MEDS: LITHIUM CARBONATE 300 MG CAPSULE PO SCH ×2 (08:27→21:20)
[2020-05-30] MEDS: ESCITALOPRAM 10MG TABLET PO SCH (08:27)
[2020-05-30] MEDS: ACAMPROSATE 333 MG TABLET.DR PO SCH ×3 (08:27→21:20)
[2020-05-30] MEDS: hydrOXyzine 50MG TABLET PO PRN (18:39)
[2020-05-30 19:42] VITALS: BP 107/73
[2020-05-30] MEDS: PRAZOSIN 2 MG CAPSULE PO SCH ×2 (21:21→21:56)
[2020-05-30] MEDS: MIRTAZAPINE 15 MG TABLET PO SCH (21:21)
[2020-05-31 07:55] VITALS: BP 158/72
[2020-05-31] MEDS: ACAMPROSATE 333 MG TABLET.DR PO SCH ×3 (08:29→21:30)
[2020-05-31] MEDS: ESCITALOPRAM 10MG TABLET PO SCH (08:29)
[2020-05-31] MEDS: LITHIUM CARBONATE 300 MG CAPSULE PO SCH ×2 (08:29→21:57)
[2020-05-31] MEDS: ZIPRASIDONE 40MG CAPSULE PO SCH ×2 (08:29→21:29)
[2020-05-31 19:57] VITALS: BP 125/84
[2020-05-31] MEDS: hydrOXyzine 50MG TABLET PO PRN (21:29)
[2020-05-31] MEDS: MIRTAZAPINE 15 MG TABLET PO SCH (21:29)
[2020-06-01 07:38] VITALS: BP 105/71
[2020-06-01] MEDS: ACAMPROSATE 333 MG TABLET.DR PO SCH (07:52)
[2020-06-01] MEDS: ESCITALOPRAM 10MG TABLET PO SCH (07:52)
[2020-06-01] MEDS: LITHIUM CARBONATE 300 MG CAPSULE PO SCH (07:52)
[2020-06-01] MEDS: ZIPRASIDONE 40MG CAPSULE PO SCH (07:52)
[2020-06-01] MEDS ORDERED: ACAM333T7 PO (08:03)
[2020-06-01] MEDS ORDERED: ZIPR40CA2 PO (08:03)
[2020-06-01] MEDS ORDERED: HYDR50TA99 PO (08:03)
[2020-06-01] MEDS ORDERED: MIRT-34 PO (08:03)
[2020-06-01] MEDS ORDERED: PRAZ2CAP2 PO (08:03)
[2020-06-01] MEDS ORDERED: ESCI10TA PO (08:03)
== END 2020-06-01 09:30 | disposition home or self-care (01) | DRG 750 ==
LOC: 3E 23:07
PROVIDERS: ADMIT Psychiatry & Neurology Psychosomatic Medicine; ATTEND Psychiatry & Neurology Psychosomatic Medicine
DX: F25.0 Schizoaffective disorder, bipolar type (principal); F43.10 Post-traumatic stress disorder, unspecified; E66.9 Obesity, unspecified; J45.909 Unspecified asthma, uncomplicated; F41.9 Anxiety disorder, unspecified; G47.00 Insomnia, unspecified; F17.200 Nicotine dependence, unspecified, uncomplicated; Z79.899 Other long term (current) drug therapy; Z88.8 Allergy status to other drugs, medicaments and biological substances; Z82.5 Family history of asthma and other chronic lower respiratory diseases; Z80.8 Family history of malignant neoplasm of other organs or systems; Z83.3 Family history of diabetes mellitus; Z82.49 Family history of ischemic heart disease and other diseases of the circulatory system; Z81.8 Family history of other mental and behavioral disorders; Z68.44 Body mass index [BMI] 60.0-69.9, adult; F60.3 Borderline personality disorder
CPT/HCPCS: 36415; 71045; 80048; 80061; 80076; 80178; 80307; 81001; 82040; 82607; 84439; 84443; 84703; 85025; 87086; 93005; 99284

== ENCOUNTER 2020-06-07 11:10 | Inpatient (IN) | payer MEDICAID ==
[~2020-06-07] VITALS: Ht 167.6 cm; Wt 170.4 kg
[~2020-06-07 11:10] MED LIST changes: +ALBU18HF PO; +HYDR50TA99 PO; +LITH300C PO; +MIRT-34 PO; +TOPI25CA3 PO
[2020-06-07] MEDS ORDERED: DOCUSATE 100 MG CAPSULE PO PRN (12:00)
[2020-06-07] MEDS ORDERED: POLYETHYLENE GLYCOL 17 GM PACKET PO PRN (12:00)
[2020-06-07] MEDS ORDERED: ONDANSETRON ODT 4 MG PO PRN (12:00)
[2020-06-07] MEDS ORDERED: BISACODYL 10 MG SUPP PR PRN (12:00)
[2020-06-07 14:00] VITALS: BP 115/80
[2020-06-07 14:33] VITALS: BP 115/80
[2020-06-07] MEDS: ACAMPROSATE 333 MG TABLET.DR PO SCH ×2 (16:51→20:32)
[2020-06-07 19:12] VITALS: BP 106/69
[2020-06-07 20:19] LABS: MICROSCOPIC AUTO
[2020-06-07] MEDS: LITHIUM CARBONATE 300 MG CAPSULE PO SCH (20:32)
[2020-06-07] MEDS: MIRTAZAPINE 15 MG TABLET PO SCH (20:32)
[2020-06-07] MEDS: ACETAMINOPHEN 325 MG TABLET PO PRN (20:33)
[2020-06-07] MEDS ORDERED: ZIPRASIDONE 40MG CAPSULE PO SCH (21:00)
[2020-06-07] MEDS ORDERED: TOPIRAMATE 25 MG TABLET PO SCH (21:00)
[2020-06-08 08:15] VITALS: BP 95/67
[2020-06-08] MEDS: ACAMPROSATE 333 MG TABLET.DR PO SCH ×3 (08:47→20:03)
[2020-06-08] MEDS: LITHIUM CARBONATE 300 MG CAPSULE PO SCH ×2 (08:47→20:03)
[2020-06-08] MEDS: ESCITALOPRAM 10MG TABLET PO SCH (08:47)
[2020-06-08] MEDS: NICOTINE 14MG/24 HR PATCH.TD24 TD SCH (08:48)
[2020-06-08] MEDS: ACETAMINOPHEN 325 MG TABLET PO PRN ×2 (09:19→14:40)
[2020-06-08 19:11] VITALS: BP 119/78
[2020-06-08] MEDS: hydrOXyzine 50MG TABLET PO PRN (20:03)
[2020-06-08] MEDS: MIRTAZAPINE 15 MG TABLET PO SCH (20:03)
[2020-06-09 07:20] VITALS: BP 116/75
[2020-06-09] MEDS: NICOTINE 14MG/24 HR PATCH.TD24 TD SCH (08:14)
[2020-06-09] MEDS: ACAMPROSATE 333 MG TABLET.DR PO SCH ×3 (08:14→20:48)
[2020-06-09] MEDS: LITHIUM CARBONATE 300 MG CAPSULE PO SCH ×2 (08:14→20:48)
[2020-06-09] MEDS: ESCITALOPRAM 10MG TABLET PO SCH (08:14)
[2020-06-09] MEDS: ACETAMINOPHEN 325 MG TABLET PO PRN (15:20)
[2020-06-09 19:40] VITALS: BP 121/76
[2020-06-09] MEDS: MIRTAZAPINE 15 MG TABLET PO SCH (20:48)
[2020-06-09] MEDS: PRAZOSIN 2 MG CAPSULE PO SCH (20:48)
[2020-06-10 07:42] VITALS: BP 107/72
[2020-06-10] MEDS: LITHIUM CARBONATE 300 MG CAPSULE PO SCH ×2 (08:18→20:32)
[2020-06-10] MEDS: NICOTINE 14MG/24 HR PATCH.TD24 TD SCH (08:18)
[2020-06-10] MEDS: ACAMPROSATE 333 MG TABLET.DR PO SCH ×3 (08:18→20:32)
[2020-06-10] MEDS: ESCITALOPRAM 10MG TABLET PO SCH (08:18)
[2020-06-10] MEDS: ACETAMINOPHEN 325 MG TABLET PO PRN (12:13)
[2020-06-10] MEDS: hydrOXyzine 50MG TABLET PO PRN (15:26)
[2020-06-10] MEDS ORDERED: LORazepam 1MG TABLET PO ONE (18:00)
[2020-06-10 19:41] VITALS: BP 113/70
[2020-06-10] MEDS: PRAZOSIN 2 MG CAPSULE PO SCH (20:32)
[2020-06-10] MEDS: MIRTAZAPINE 15 MG TABLET PO SCH (20:32)
[2020-06-11 07:00] VITALS: BP 113/57
[2020-06-11] MEDS: ACAMPROSATE 333 MG TABLET.DR PO SCH ×3 (09:01→20:38)
[2020-06-11] MEDS: ESCITALOPRAM 10MG TABLET PO SCH (09:01)
[2020-06-11] MEDS: NICOTINE 14MG/24 HR PATCH.TD24 TD SCH (09:02)
[2020-06-11] MEDS: LITHIUM CARBONATE 300 MG CAPSULE PO SCH ×2 (09:02→20:28)
[2020-06-11] MEDS ORDERED: NICO-486 TD (11:25)
[2020-06-11] MEDS ORDERED: PRAZ2CAP2 PO (11:25)
[2020-06-11] MEDS ORDERED: ACAM333T7 PO (11:25)
[2020-06-11 19:46] VITALS: BP 136/80
[2020-06-11] MEDS: MIRTAZAPINE 15 MG TABLET PO SCH (20:28)
[2020-06-11] MEDS: PRAZOSIN 2 MG CAPSULE PO SCH (20:28)
[2020-06-12 07:27] VITALS: BP 102/68
[2020-06-12] MEDS: ESCITALOPRAM 10MG TABLET PO SCH (08:26)
[2020-06-12] MEDS: ACAMPROSATE 333 MG TABLET.DR PO SCH (08:26)
[2020-06-12] MEDS: LITHIUM CARBONATE 300 MG CAPSULE PO SCH (08:26)
[2020-06-12] MEDS: NICOTINE 14MG/24 HR PATCH.TD24 TD SCH (09:00)
== END 2020-06-12 09:37 | disposition home or self-care (01) | DRG 750 ==
LOC: 3E 13:41
PROVIDERS: ADMIT Psychiatry & Neurology Psychosomatic Medicine; ATTEND Psychiatry & Neurology Psychosomatic Medicine
DX: F25.0 Schizoaffective disorder, bipolar type (principal); E66.9 Obesity, unspecified; F43.10 Post-traumatic stress disorder, unspecified; F60.3 Borderline personality disorder; F63.9 Impulse disorder, unspecified; G47.00 Insomnia, unspecified; J45.909 Unspecified asthma, uncomplicated; R82.90 Unspecified abnormal findings in urine; Z79.899 Other long term (current) drug therapy; Z81.8 Family history of other mental and behavioral disorders; Z91.5 Personal history of self-harm; T44.6X2A Poisoning by alpha-adrenoreceptor antagonists, intentional self-harm, initial encounter; F17.210 Nicotine dependence, cigarettes, uncomplicated; F51.5 Nightmare disorder; Y92.89 Other specified places as the place of occurrence of the external cause; Z90.49 Acquired absence of other specified parts of digestive tract; Z68.44 Body mass index [BMI] 60.0-69.9, adult; Z88.8 Allergy status to other drugs, medicaments and biological substances; Z83.3 Family history of diabetes mellitus; Z80.49 Family history of malignant neoplasm of other genital organs; Z82.5 Family history of asthma and other chronic lower respiratory diseases
CPT/HCPCS: 81001; 87086

== ENCOUNTER 2020-08-02 17:37 | Emergency (ER) | payer MEDICAID ==
[~2020-08-02] VITALS: Ht 167.6 cm; Wt 165.0 kg
[~2020-08-02 17:37] MED LIST changes: +NICO-486 TD
--- NOTE | 2020-08-02 18:00 | NUR ---
JOSE REID FROM HOME FOR SI. PT IS LOOSING HER PSYCHIATRIST AND SHE TOLD HER MD THAT SHE WAS GOING TO OD YESTERDAY. SENT IN BY HER MD. PT IN ROOM IN [facility]. ROOM IS SAFE AND SECURE.
--- NOTE | 2020-08-02 18:26 | NUR ---
Pt resting in room, nadn. 1 bag in belongings placed in ED safety locker.
--- NOTE | 2020-08-02 18:52 | NUR ---
RECEIVED REPORT FROM JESICA CLAIRE. PT LAYING IN BED, RESPIRATIONS EVEN AND UNLABORED, ALL NEEDS MET AT THIS TIME. WILL CONTINUE TO MONITOR Q15 MINUTES.
[2020-08-02 18:57] LABS: BASOPHILS # (AUTO) 0.07 x10^3/uL (0-0.1); BASOPHILS % (AUTO) 0 % (0-1); EOSINOPHILS # (AUTO) 0.25 x10^3/uL (0-0.4); EOSINOPHILS % (AUTO) 2 % (1-7); LYMPHOCYTES # (AUTO) 3.69 x10^3/uL (1-3.4); LYMPHOCYTES % (AUTO) 24 % (22-44); MD NO; MEAN CORPUSCULAR HEMOGLOBIN 25.4 pg (27.0-34.8); MEAN CORPUSCULAR HGB CONC 31.9 g/dL (32.4-35.8); MEAN CORPUSCULAR VOLUME 79.4 fL (80-100); MEAN PLATELET VOLUME 8.6 fL (7.4-10.4); MONOCYTES # (AUTO) 0.69 x10^3/uL (0.2-0.8); MONOCYTES % (AUTO) 5 % (2-9); NEUTROPHILS # (AUTO) 10.78 x10^3/uL (1.8-6.8); NEUTROPHILS % (AUTO) 70 % (42-75); PLATELET COUNT 316 x10^3/uL (130-400); RED BLOOD COUNT 5.03 x10^6/uL (3.82-5.3); RED CELL DISTRIBUTION WIDTH 17.7 % (9.6-15.2)
[2020-08-02 19:04] LABS: ALBUMIN 3.1 g/dL (3.4-5.0); ANION GAP 6 mmol/L (5-15); CALCIUM 8.7 mg/dL (8.5-10.1); CHLORIDE 110 mmol/L (98-107)
[2020-08-02 19:10] LABS: CREATININE 0.76 mg/dL (0.55-1.02); SALICYLATE LEVEL 3.6 mg/dL (2.8-20.0)
--- NOTE | 2020-08-02 19:35 | NUR ---
PT AMBULATORY TO BATHROOM AT THIS TIME FOR UA.
--- NOTE | 2020-08-02 19:40 | NUR ---
THROUGHPUT RN: TESSA CALLED ABOUT POSSIBLE ADMIT OF PT, WILL CALL BACK WITH DECISION.
[2020-08-02 20:15] VITALS: BP 115/81
--- NOTE | 2020-08-02 20:21 | NUR ---
PT LAYING IN BED, HAS BEEN GIVEN DINNER, ALL NEEDS MET AT THIS TIME. NO COMPLAINTS.
[2020-08-02 20:32] LABS: HCG UR SG 1.027 (1.003-1.030); MICROSCOPIC INDICATED
[2020-08-02 20:40] LABS: AMPHETAMINE SCREEN, URINE Negative (Negative); BARBITURATE SCREEN, URINE Negative (Negative); BENZODIAZEPINE SCREEN, URINE Negative (Negative); CANNABINOID SCREEN, URINE Negative (Negative); COCAINE SCREEN, URINE Negative (Negative); METHADONE SCREEN, URINE Negative (Negative); OPIATE SCREEN, URINE Negative (Negative)
--- NOTE | 2020-08-02 22:14 | NUR ---
2100: PT RESTING, CALM, COOPERATIVE, FLAT AFFECT. AWAITING [facility] ADMIT? SITTER IN LINE OF SITE, GARAGE DOORS DOWN, ROOM SAFETY COMPLETED. AIDET PROVIDED.
--- NOTE | 2020-08-02 22:42 | NUR ---
CHET RN: U ACCEPTED PT
== END 2020-08-03 00:24 ==
LOC: ED 08-03 00:13
DX: F33.9 Major depressive disorder, recurrent, unspecified (principal); R45.851 Suicidal ideations; G89.29 Other chronic pain; J45.909 Unspecified asthma, uncomplicated; E66.01 Morbid (severe) obesity due to excess calories; Z68.43 Body mass index [BMI] 50.0-59.9, adult
CPT/HCPCS: 36415; 80048; 80307; 81001; 81025; 82040; 85025; 99285

== ENCOUNTER 2020-08-02 23:24 | Inpatient (IN) | payer MEDICAID ==
[~2020-08-02] VITALS: Ht 167.6 cm; Wt 168.0 kg
[2020-08-03] MEDS ORDERED: BISACODYL 10 MG SUPP PR PRN
[2020-08-03] MEDS ORDERED: POLYETHYLENE GLYCOL 17 GM PACKET PO PRN
[2020-08-03] MEDS ORDERED: DOCUSATE 100 MG CAPSULE PO PRN
[2020-08-03] MEDS ORDERED: ACETAMINOPHEN 325 MG TABLET PO PRN
[2020-08-03] MEDS ORDERED: ONDANSETRON ODT 4 MG PO PRN
[2020-08-03 00:35] VITALS: BP 145/85
[2020-08-03] MEDS ORDERED: PLEASE ENTER HEIGHT AND WEIGHT MC SCH (01:00)
[2020-08-03 01:32] VITALS: BP 145/85
[2020-08-03 07:02] LABS: ALBUMIN 2.8 g/dL (3.4-5.0); CALCIUM 8.7 mg/dL (8.5-10.1)
[2020-08-03 07:21] LABS: BASOPHILS # (AUTO) 0.06 x10^3/uL (0-0.1); BASOPHILS % (AUTO) 0 % (0-1); EOSINOPHILS # (AUTO) 0.27 x10^3/uL (0-0.4); EOSINOPHILS % (AUTO) 2 % (1-7); LYMPHOCYTES # (AUTO) 4.91 x10^3/uL (1-3.4); LYMPHOCYTES % (AUTO) 32 % (22-44); MD NO; MEAN CORPUSCULAR HEMOGLOBIN 24.9 pg (27.0-34.8); MEAN CORPUSCULAR VOLUME 80.6 fL (80-100); MEAN PLATELET VOLUME 8.3 fL (7.4-10.4); MONOCYTES # (AUTO) 1.01 x10^3/uL (0.2-0.8); MONOCYTES % (AUTO) 7 % (2-9); NEUTROPHILS # (AUTO) 9.15 x10^3/uL (1.8-6.8); NEUTROPHILS % (AUTO) 59 % (42-75); PLATELET COUNT 325 x10^3/uL (130-400); RED BLOOD COUNT 4.98 x10^6/uL (3.82-5.3); RED CELL DISTRIBUTION WIDTH 18.1 % (9.6-15.2)
[2020-08-03 07:27] LABS: ALANINE AMINOTRANSFERASE 23 U/L (12-78); ALKALINE PHOSPHATASE 123 U/L (45-117); BILIRUBIN,TOTAL 0.2 mg/dL (0.2-1.0); CREATININE 0.73 mg/dL (0.55-1.02); FREE T4 (FREE THYROXINE) 0.91 ng/dL (0.76-1.46)
[2020-08-03 07:32] LABS: ANION GAP 8 mmol/L (5-15); CHLORIDE 111 mmol/L (98-107)
[2020-08-03] MEDS ORDERED: LITHIUM CARBONATE 300 MG CAPSULE PO SCH (09:00)
[2020-08-03] MEDS ORDERED: TOPIRAMATE 25 MG TABLET PO SCH (09:00)
[2020-08-03] MEDS: ACAMPROSATE 333 MG TABLET.DR PO SCH ×3 (09:29→20:38)
[2020-08-03] MEDS: ZIPRASIDONE 40MG CAPSULE PO SCH ×2 (09:29→20:38)
[2020-08-03] MEDS: ESCITALOPRAM 10MG TABLET PO SCH (09:29)
[2020-08-03] MEDS: NICOTINE 14MG/24 HR PATCH.TD24 TD SCH (09:30)
[2020-08-03 10:11] VITALS: BP 123/85
[2020-08-03] MEDS: NYSTATIN TOPICAL POWDER 15GM TP SCH ×2 (16:00→20:40)
[2020-08-03 19:19] VITALS: BP 105/71
[2020-08-03] MEDS: LITHIUM CARBONATE 300 MG CAPSULE PO SCH (20:39)
[2020-08-03] MEDS: MIRTAZAPINE 15 MG TABLET PO SCH (20:39)
[2020-08-03] MEDS: PRAZOSIN 2 MG CAPSULE PO SCH (20:41)
[2020-08-04 07:22] VITALS: BP 116/72
[2020-08-04 07:38] LABS: ALBUMIN 2.7 g/dL (3.4-5.0); ANION GAP 5 mmol/L (5-15); CALCIUM 8.7 mg/dL (8.5-10.1); CHLORIDE 113 mmol/L (98-107)
[2020-08-04 07:41] LABS: ALANINE AMINOTRANSFERASE 23 U/L (12-78); ALKALINE PHOSPHATASE 116 U/L (45-117); BILIRUBIN,TOTAL 0.3 mg/dL (0.2-1.0); CREATININE 0.64 mg/dL (0.55-1.02); TOTAL PROTEIN 6.8 g/dL (6.4-8.2)
[2020-08-04 07:45] LABS: BASOPHILS # (AUTO) 0.06 x10^3/uL (0-0.1); BASOPHILS % (AUTO) 1 % (0-1); EOSINOPHILS # (AUTO) 0.21 x10^3/uL (0-0.4); EOSINOPHILS % (AUTO) 2 % (1-7); LYMPHOCYTES # (AUTO) 3.81 x10^3/uL (1-3.4); LYMPHOCYTES % (AUTO) 33 % (22-44); MD NO; MEAN CORPUSCULAR HEMOGLOBIN 24.8 pg (27.0-34.8); MEAN CORPUSCULAR HGB CONC 30.8 g/dL (32.4-35.8); MEAN CORPUSCULAR VOLUME 80.3 fL (80-100); MEAN PLATELET VOLUME 8.3 fL (7.4-10.4); MONOCYTES # (AUTO) 0.71 x10^3/uL (0.2-0.8); MONOCYTES % (AUTO) 6 % (2-9); NEUTROPHILS # (AUTO) 6.83 x10^3/uL (1.8-6.8); NEUTROPHILS % (AUTO) 59 % (42-75); PLATELET COUNT 293 x10^3/uL (130-400); RED BLOOD COUNT 5.24 x10^6/uL (3.82-5.3); RED CELL DISTRIBUTION WIDTH 18.3 % (9.6-15.2)
[2020-08-04] MEDS: NYSTATIN TOPICAL POWDER 15GM TP SCH ×3 (07:54→21:20)
[2020-08-04] MEDS: NICOTINE 14MG/24 HR PATCH.TD24 TD SCH (08:08)
[2020-08-04] MEDS: ACAMPROSATE 333 MG TABLET.DR PO SCH ×3 (08:08→21:22)
[2020-08-04] MEDS: ESCITALOPRAM 10MG TABLET PO SCH (08:09)
[2020-08-04] MEDS: ZIPRASIDONE 40MG CAPSULE PO SCH ×2 (08:09→21:20)
[2020-08-04] MEDS: LITHIUM CARBONATE 300 MG CAPSULE PO SCH ×2 (08:19→21:22)
[2020-08-04] MEDS: hydrOXyzine 50MG TABLET PO PRN ×2 (18:32→21:17)
[2020-08-04 19:47] VITALS: BP 106/69
[2020-08-04] MEDS: MIRTAZAPINE 15 MG TABLET PO SCH (21:20)
[2020-08-04] MEDS: PRAZOSIN 2 MG CAPSULE PO SCH (21:25)
[2020-08-05 07:18] VITALS: BP 130/78
[2020-08-05] MEDS: ACAMPROSATE 333 MG TABLET.DR PO SCH ×3 (08:27→19:42)
[2020-08-05] MEDS: LITHIUM CARBONATE 300 MG CAPSULE PO SCH ×2 (08:27→19:42)
[2020-08-05] MEDS: ESCITALOPRAM 10MG TABLET PO SCH (08:27)
[2020-08-05] MEDS: ZIPRASIDONE 40MG CAPSULE PO SCH ×2 (08:27→19:42)
[2020-08-05] MEDS: NICOTINE 14MG/24 HR PATCH.TD24 TD SCH (08:28)
[2020-08-05] MEDS: NYSTATIN TOPICAL POWDER 15GM TP SCH ×3 (08:52→22:04)
[2020-08-05] MEDS: MIRTAZAPINE 15 MG TABLET PO SCH (19:41)
[2020-08-05 19:42] VITALS: BP 106/76
[2020-08-05] MEDS: PRAZOSIN 2 MG CAPSULE PO SCH (19:45)
[2020-08-05] MEDS: hydrOXyzine 50MG TABLET PO PRN (19:49)
[2020-08-06 07:17] VITALS: BP 119/70
[2020-08-06] MEDS: ACAMPROSATE 333 MG TABLET.DR PO SCH ×3 (08:29→21:01)
[2020-08-06] MEDS: LITHIUM CARBONATE 300 MG CAPSULE PO SCH ×2 (08:29→21:01)
[2020-08-06] MEDS: ZIPRASIDONE 40MG CAPSULE PO SCH ×2 (08:30→21:03)
[2020-08-06] MEDS: ESCITALOPRAM 10MG TABLET PO SCH (08:31)
[2020-08-06] MEDS: NICOTINE 14MG/24 HR PATCH.TD24 TD SCH (08:32)
[2020-08-06] MEDS: NYSTATIN TOPICAL POWDER 15GM TP SCH ×3 (09:44→21:04)
[2020-08-06] MEDS: hydrOXyzine 50MG TABLET PO PRN ×2 (09:45→15:36)
[2020-08-06] MEDS: PRAZOSIN 1 MG CAPSULE PO SCH (09:58)
[2020-08-06 19:52] VITALS: BP 105/74
[2020-08-06] MEDS: PRAZOSIN 2 MG CAPSULE PO SCH (21:00)
[2020-08-06] MEDS: MIRTAZAPINE 15 MG TABLET PO SCH (21:01)
[2020-08-07 07:23] VITALS: BP 129/84
[2020-08-07] MEDS: ZIPRASIDONE 40MG CAPSULE PO SCH ×2 (08:52→20:55)
[2020-08-07] MEDS: PRAZOSIN 1 MG CAPSULE PO SCH (08:52)
[2020-08-07] MEDS: ACAMPROSATE 333 MG TABLET.DR PO SCH ×3 (08:53→20:54)
[2020-08-07] MEDS: LITHIUM CARBONATE 300 MG CAPSULE PO SCH ×2 (08:53→20:55)
[2020-08-07] MEDS: NYSTATIN TOPICAL POWDER 15GM TP SCH ×3 (08:53→20:56)
[2020-08-07] MEDS: ESCITALOPRAM 10MG TABLET PO SCH (08:53)
[2020-08-07] MEDS: NICOTINE 14MG/24 HR PATCH.TD24 TD SCH (08:57)
[2020-08-07] MEDS: hydrOXyzine 50MG TABLET PO PRN ×2 (11:23→19:40)
[2020-08-07 19:30] VITALS: BP 148/83
[2020-08-07] MEDS: PRAZOSIN 2 MG CAPSULE PO SCH (20:56)
[2020-08-07] MEDS: MIRTAZAPINE 15 MG TABLET PO SCH (20:56)
[2020-08-08 07:23] VITALS: BP 113/74
[2020-08-08] MEDS: PRAZOSIN 1 MG CAPSULE PO SCH (08:36)
[2020-08-08] MEDS: ZIPRASIDONE 40MG CAPSULE PO SCH ×2 (08:36→20:55)
[2020-08-08] MEDS: ESCITALOPRAM 10MG TABLET PO SCH (08:36)
[2020-08-08] MEDS: LITHIUM CARBONATE 300 MG CAPSULE PO SCH ×2 (08:37→20:55)
[2020-08-08] MEDS: NICOTINE 14MG/24 HR PATCH.TD24 TD SCH (08:38)
[2020-08-08] MEDS: ACAMPROSATE 333 MG TABLET.DR PO SCH ×3 (08:40→20:55)
[2020-08-08] MEDS ORDERED: PALIPERIDONE PALMITATE 156 MG/ML IM ONE (09:00)
[2020-08-08] MEDS: NYSTATIN TOPICAL POWDER 15GM TP SCH ×3 (09:05→21:07)
[2020-08-08] MEDS ORDERED: PRAZ1CAP2 PO (12:57)
[2020-08-08] MEDS ORDERED: PRAZ2CAP2 PO (12:57)
[2020-08-08] MEDS ORDERED: ACAM333T7 PO (12:57)
[2020-08-08] MEDS ORDERED: HYDR50TA99 PO (12:57)
[2020-08-08] MEDS ORDERED: LITH300C PO ×2 (12:57)
[2020-08-08 20:00] VITALS: BP 131/75
[2020-08-08] MEDS: PRAZOSIN 2 MG CAPSULE PO SCH (20:56)
[2020-08-08] MEDS: MIRTAZAPINE 15 MG TABLET PO SCH (20:56)
[2020-08-09 07:15] VITALS: BP 115/87
[2020-08-09] MEDS: ZIPRASIDONE 40MG CAPSULE PO SCH (08:33)
[2020-08-09] MEDS: ESCITALOPRAM 10MG TABLET PO SCH (08:34)
[2020-08-09] MEDS: LITHIUM CARBONATE 300 MG CAPSULE PO SCH (08:34)
[2020-08-09] MEDS: NICOTINE 14MG/24 HR PATCH.TD24 TD SCH (08:34)
[2020-08-09] MEDS: ACAMPROSATE 333 MG TABLET.DR PO SCH (08:34)
[2020-08-09] MEDS: PRAZOSIN 1 MG CAPSULE PO SCH (08:34)
[2020-08-09] MEDS: NYSTATIN TOPICAL POWDER 15GM TP SCH (08:35)
== END 2020-08-09 09:15 | disposition home or self-care (01) | DRG 750 ==
LOC: 3E 08-03 00:25
PROVIDERS: ADMIT Psychiatry & Neurology Psychosomatic Medicine; ATTEND Psychiatry & Neurology Psychosomatic Medicine
DX: F25.0 Schizoaffective disorder, bipolar type (principal); B37.2 Candidiasis of skin and nail; D72.829 Elevated white blood cell count, unspecified; E66.9 Obesity, unspecified; Z68.43 Body mass index [BMI] 50.0-59.9, adult; F43.10 Post-traumatic stress disorder, unspecified; F60.3 Borderline personality disorder; F63.9 Impulse disorder, unspecified; J45.909 Unspecified asthma, uncomplicated; L30.4 Erythema intertrigo; R45.851 Suicidal ideations; Z79.899 Other long term (current) drug therapy; Z83.3 Family history of diabetes mellitus; Z82.49 Family history of ischemic heart disease and other diseases of the circulatory system
CPT/HCPCS: 36415; 71045; 80048; 80053; 80178; 80307; 81001; 81025; 82040; 82607; 84439; 84443; 85025; 93005; 99285; J2426; Q0177

== ENCOUNTER 2021-07-01 23:12 | Emergency (ER) | payer MEDICAID ==
[~2021-07-01] VITALS: Ht 165.1 cm; Wt 185.6 kg
[~2021-07-01 23:12] MED LIST changes: -ESCI10TA PO; +ESCI10TA97 PO; +MIRT-14 PO; -MIRT-34 PO; +MIRT-37 PO; -MIRT15TA PO
[2021-07-01 23:43] LABS: BASOPHILS % (AUTO) 1 % (0-1); EOSINOPHILS % (AUTO) 3 % (1-7); LYMPHOCYTES % (AUTO) 40 % (22-44); MEAN CORPUSCULAR HEMOGLOBIN 26.2 pg (27.0-34.8); MEAN CORPUSCULAR HGB CONC 32.6 g/dL (32.4-35.8); MEAN PLATELET VOLUME 7.7 fL (7.4-10.4); MONOCYTES % (AUTO) 5 % (2-9); NEUTROPHILS % (AUTO) 53 % (42-75); PLATELET COUNT 269 x10^3/uL (130-400); RED BLOOD COUNT 5.05 x10^6/uL (3.82-5.3); RED CELL DISTRIBUTION WIDTH 15.8 % (9.6-15.2)
[2021-07-01 23:52] LABS: ALANINE AMINOTRANSFERASE 30 U/L (12-78); ANION GAP 8 mmol/L (5-15); CHLORIDE 113 mmol/L (98-107); SALICYLATE LEVEL 3.2 mg/dL (2.8-20.0)
[2021-07-02 00:03] LABS: ALKALINE PHOSPHATASE 147 U/L (45-117); BILIRUBIN,TOTAL 0.1 mg/dL (0.2-1.0); TOTAL PROTEIN 7.4 g/dL (6.4-8.2)
[2021-07-02] MEDS ORDERED: LORazepam 1MG TABLET PO ONE (01:00)
[2021-07-02] MEDS ORDERED: LORazepam 1MG TABLET ONE (02:08)
--- NOTE | 2021-07-02 02:10 | NUR ---
No garage doors in room, secured room as safe as possible. Verbal safety contract discussed with pt. Pt agrees not to harm herself in any way using any type of equipment in room, including her home CPAP, which Dr. Calabrese has given verbal order for pt to use. i assisted pt in setting this up. HPI: Pt brought in for c/o thoughts of SI. Pt endorses a plan to overdose on her medications that is prescribed to her. Some medications the pts takes include: Lexapro, Hydorxyzine, Klonopin (as needed) and Invega for which she gets injection every 2 weeks. pt also on Remeron. Pt states she has battled with mental illness for years, and tonight at approx 2044, she used the cuticle wage adjuster on the end of the nail clipper to cut into her medial R forearm "Fuck my life." Bleeding controlled, no signs of infection. The area of skin is reddened. Pt denies ay pain or discomfort. pt endorses stressors in regards to the upcoming birthday of her 8 year old daughter, which she states her daughter was put up for adoption when she was 3 days old by CPS. Pt states she has never had custody of her child. This is causing her increased deprssion, anxiety, and suicidal ideation. Pt denies HI. PMH: Remarkable for sleep apnea, asthma, Endometriosis, borderline personality disorder, PTSD, Schizoaffective disorder. Pt denies drugs or alcohol. Pt smokes approx 11 cigarrettes daily, states she has been cutting back. pt is fully vaccinated ([employer] Pt changed into gown, belongings secured in locker. provided pt w/ belongings checklist sheet. Copy placed in her personal belongings bag which is locked up and labeled. Pt calm ad cooperative, denies needs. provided with extra blankets, snacks, PO fluids, tolerating well. Denies further needs a this time. Sitter at bedside.
--- NOTE | 2021-07-02 02:29 | NUR ---
Pt provided with socks at this time. Denies further needs, resting comfortably, sitter at bedside.
--- NOTE | 2021-07-02 02:38 | NUR ---
FAXED PACKET TO [facility] ONLY DUE TO PT'S INSURANCE [facility] NOT ACCEPTING PTS AT THIS TIME
[2021-07-02 03:09] LABS: AMPHETAMINE SCREEN, URINE Negative (Negative); BARBITURATE SCREEN, URINE Negative (Negative); BENZODIAZEPINE SCREEN, URINE Negative (Negative); CANNABINOID SCREEN, URINE Negative (Negative); COCAINE SCREEN, URINE Negative (Negative); METHADONE SCREEN, URINE Negative (Negative); OPIATE SCREEN, URINE Negative (Negative)
--- NOTE | 2021-07-02 03:30 | NUR ---
Pt resting comfortably at this time, denies further needs. Sitter at [facility]. Pt has CPAP machine on.
--- NOTE | 2021-07-02 04:30 | NUR ---
Pt sleeping comfortably at this time, denies needs. Sitter in clear line of sight of patient. Room secured. garage doors down.
--- NOTE | 2021-07-02 05:30 | NUR ---
Pt sleeping comfortably at this time, denies needs. Sitter in clear line of sight of patient. Room secured. garage doors down.
[2021-07-02 06:30] VITALS: BP 137/56
--- NOTE | 2021-07-02 06:30 | NUR ---
Pt sleeping comfortably at this time, denies needs. Sitter in clear line of sight of patient. Room secured. garage doors down.
--- NOTE | 2021-07-02 06:58 | NUR ---
Report given to JESICA Woods no further questions at this time.
--- NOTE | 2021-07-02 06:59 | NUR ---
REPORT FROM JESICA HEARD. [facility].
--- NOTE | 2021-07-02 10:44 | NUR ---
PT RESTING IN [facility] AT THIS TIME, MEAL TRAY ORDERED FOR PT, PT STATES NO NEEDS AT THIS TIME.
[2021-07-02] MEDS ORDERED: HYDROXYZINE PAMOATE 50MG CAP PO PRN (12:00)
[2021-07-02] MEDS ORDERED: PRAZOSIN 1 MG CAPSULE PO SCH (12:00)
[2021-07-02] MEDS ORDERED: ESCITALOPRAM 10MG TABLET PO SCH (13:00)
--- NOTE | 2021-07-02 13:12 | NUR ---
PT TRANSFERRED TO HOSPITAL BED FROM [facility], PT STATES NO NEEDS AT THIS TIME, WCTM.
--- NOTE | 2021-07-02 15:48 | NUR ---
PT RESTING IN RSARDIS WITH EYES CLOSED, SITTER IN LINE OF SIGHT, BRIGITTE AT THIS TIME, PHYLLIS.
[2021-07-02] MEDS ORDERED: ACAMPROSATE 333 MG TABLET.DR PO SCH (16:00)
[2021-07-02] MEDS ORDERED: MIRTAZAPINE 15 MG TABLET PO SCH (21:00)
[2021-07-02] MEDS ORDERED: PRAZOSIN 2 MG CAPSULE PO SCH (21:00)
[2021-07-03] MEDS ORDERED: LORA1TAB46 PO (12:23)
[2021-07-03] MEDS ORDERED: CHOL10003 PO (12:23)
[2021-07-12] MEDS ORDERED: PALIPERIDONE PALMITATE 156 MG/ML IM ONE (09:00)
== END 2021-07-02 17:18 ==
LOC: ED 07-02 01:14 → UNDOADMOB 07-02 01:15 → EDIP 07-02 01:15 → ED 07-02 01:55 → UNDOADMOB 07-02 02:54 → EDIP 07-02 02:54 → ED 07-02 17:18
DX: S51.812A Laceration without foreign body of left forearm, initial encounter (principal); R45.851 Suicidal ideations; F23 Brief psychotic disorder; G89.29 Other chronic pain; F17.200 Nicotine dependence, unspecified, uncomplicated; Z90.89 Acquired absence of other organs; Z90.49 Acquired absence of other specified parts of digestive tract; X58.XXXA Exposure to other specified factors, initial encounter; Y93.89 Activity, other specified; Y92.89 Other specified places as the place of occurrence of the external cause; Y99.8 Other external cause status
CPT/HCPCS: 36415; 80053; 80299; 80307; 80320; 80329; 84443; 84703; 85025; 87426; G0480

== ENCOUNTER 2021-07-02 17:04 | Inpatient (IN) | payer MEDICAID ==
[~2021-07-02] VITALS: Ht 165.1 cm; Wt 188.1 kg
[2021-07-02] MEDS ORDERED: ONDANSETRON ODT 4 MG PO PRN (17:30)
[2021-07-02] MEDS ORDERED: POLYETHYLENE GLYCOL 17 GM PACKET PO PRN (17:30)
[2021-07-02] MEDS ORDERED: ACETAMINOPHEN 325 MG TABLET PO PRN (17:30)
[2021-07-02] MEDS ORDERED: BISACODYL 10 MG SUPP PR PRN (17:30)
[2021-07-02] MEDS ORDERED: DOCUSATE 100 MG CAPSULE PO PRN (17:30)
[2021-07-02] MEDS ORDERED: PLEASE ENTER HEIGHT AND WEIGHT MC SCH (18:30)
[2021-07-02 18:37] VITALS: BP 115/73
[2021-07-02 19:20] VITALS: BP 107/77
[2021-07-02] MEDS ORDERED: NYSTATIN TOPICAL POWDER 15GM TP PRN (20:00)
[2021-07-02] MEDS ORDERED: hydrOXyzine 50MG TABLET PO PRN (20:00)
[2021-07-02] MEDS ORDERED: NICOTINE 14MG/24 HR PATCH.TD24 TD SCH (20:00)
[2021-07-02] MEDS: ACAMPROSATE 333 MG TABLET.DR PO SCH (20:40)
[2021-07-02] MEDS: TOPIRAMATE 25 MG TABLET PO SCH (20:40)
[2021-07-02] MEDS: PRAZOSIN 1 MG CAPSULE PO SCH (20:41)
[2021-07-02] MEDS ORDERED: MIRTAZAPINE 15 MG TABLET PO SCH (21:00)
[2021-07-03 07:59] VITALS: BP 99/64
[2021-07-03 09:09] LABS: FREE T4 (FREE THYROXINE) 0.9 ng/dL (0.76-1.46); LDL/HDL RATIO 4.7 (0.5-3.0)
[2021-07-03] MEDS: ESCITALOPRAM 10MG TABLET PO SCH (09:09)
[2021-07-03] MEDS: PRAZOSIN 1 MG CAPSULE PO SCH ×2 (09:10→20:03)
[2021-07-03] MEDS: TOPIRAMATE 25 MG TABLET PO SCH ×2 (09:10→20:05)
[2021-07-03] MEDS: ACAMPROSATE 333 MG TABLET.DR PO SCH ×3 (09:10→20:02)
[2021-07-03] MEDS: NICOTINE 14MG/24 HR PATCH.TD24 TD SCH (09:11)
[2021-07-03] MEDS ORDERED: LORA1TAB46 PO (12:23)
[2021-07-03] MEDS ORDERED: CHOL10003 PO (12:23)
[2021-07-03] MEDS: IBUPROFEN 600 MG TABLET PO PRN (15:04)
[2021-07-03] MEDS ORDERED: BACITRACIN/POLYMIXIN B SULFATE OINT 14 GM TP SCH (17:00)
[2021-07-03] MEDS: hydrOXyzine 50MG TABLET PO SCH ×2 (18:48→20:13)
[2021-07-03 19:50] VITALS: BP 103/63
[2021-07-03] MEDS: DOXEPIN 25 MG CAPSULE PO SCH (20:02)
[2021-07-04] MEDS: hydrOXyzine 50MG TABLET PO SCH ×5 (06:13→20:01)
[2021-07-04 07:46] VITALS: BP 134/73
[2021-07-04] MEDS: ESCITALOPRAM 10MG TABLET PO SCH (09:06)
[2021-07-04] MEDS: LORATADINE 10 MG TABLET PO SCH (09:06)
[2021-07-04] MEDS: ACAMPROSATE 333 MG TABLET.DR PO SCH ×3 (09:06→20:01)
[2021-07-04] MEDS: TOPIRAMATE 25 MG TABLET PO SCH ×2 (09:06→20:01)
[2021-07-04] MEDS: PRAZOSIN 1 MG CAPSULE PO SCH ×2 (09:06→20:02)
[2021-07-04] MEDS: NICOTINE 14MG/24 HR PATCH.TD24 TD SCH (09:07)
[2021-07-04] MEDS ORDERED: PALI156D IM (09:51)
[2021-07-04] MEDS ORDERED: TOPI25TA52 PO (09:51)
[2021-07-04] MEDS ORDERED: PRAZ2CAP2 PO (09:51)
[2021-07-04] MEDS: BACITRACIN/POLYMIXIN B SULFATE OINT 14 GM TP SCH ×2 (11:07→20:01)
[2021-07-04 19:42] VITALS: BP 100/60
[2021-07-04 19:57] LABS: MICROSCOPIC INDICATED
[2021-07-04] MEDS: DOXEPIN 25 MG CAPSULE PO SCH (20:02)
[2021-07-04] MEDS: IBUPROFEN 600 MG TABLET PO PRN (20:06)
[2021-07-05] MEDS: hydrOXyzine 50MG TABLET PO SCH ×4 (06:55→20:48)
[2021-07-05 07:33] VITALS: BP 110/60
[2021-07-05] MEDS: LORATADINE 10 MG TABLET PO SCH (08:39)
[2021-07-05] MEDS: ESCITALOPRAM 10MG TABLET PO SCH (08:39)
[2021-07-05] MEDS: TOPIRAMATE 25 MG TABLET PO SCH ×2 (08:39→20:47)
[2021-07-05] MEDS: PRAZOSIN 1 MG CAPSULE PO SCH ×2 (08:39→20:48)
[2021-07-05] MEDS: ACAMPROSATE 333 MG TABLET.DR PO SCH ×3 (08:39→20:47)
[2021-07-05] MEDS: BACITRACIN/POLYMIXIN B SULFATE OINT 14 GM TP SCH ×2 (08:40→21:00)
[2021-07-05] MEDS: NICOTINE 14MG/24 HR PATCH.TD24 TD SCH (08:40)
[2021-07-05] MEDS: IBUPROFEN 600 MG TABLET PO PRN (15:49)
[2021-07-05 19:25] VITALS: BP 95/62
[2021-07-05] MEDS: DOXEPIN 25 MG CAPSULE PO SCH (20:48)
[2021-07-06] MEDS: hydrOXyzine 50MG TABLET PO SCH ×4 (06:28→20:49)
[2021-07-06 07:35] VITALS: BP 97/60
[2021-07-06 07:36] VITALS: BP 97/60
[2021-07-06] MEDS: LORATADINE 10 MG TABLET PO SCH (08:34)
[2021-07-06] MEDS: BACITRACIN/POLYMIXIN B SULFATE OINT 14 GM TP SCH ×2 (08:34→20:51)
[2021-07-06] MEDS: ACAMPROSATE 333 MG TABLET.DR PO SCH ×3 (08:34→20:49)
[2021-07-06] MEDS: TOPIRAMATE 25 MG TABLET PO SCH ×2 (08:35→20:51)
[2021-07-06] MEDS: NICOTINE 14MG/24 HR PATCH.TD24 TD SCH (08:35)
[2021-07-06] MEDS: PRAZOSIN 1 MG CAPSULE PO SCH ×2 (08:35→20:49)
[2021-07-06] MEDS: ESCITALOPRAM 10MG TABLET PO SCH (08:35)
[2021-07-06] MEDS: IBUPROFEN 600 MG TABLET PO PRN (13:45)
[2021-07-06 19:42] VITALS: BP 120/80
[2021-07-06] MEDS: CEFDINIR 300 MG CAPSULE PO SCH (20:46)
[2021-07-06] MEDS: DOXEPIN 25 MG CAPSULE PO SCH (20:50)
[2021-07-07] MEDS: hydrOXyzine 50MG TABLET PO SCH ×4 (06:23→21:03)
[2021-07-07 07:55] VITALS: BP 132/88
[2021-07-07] MEDS: CEFDINIR 300 MG CAPSULE PO SCH ×2 (08:10→21:03)
[2021-07-07] MEDS: TOPIRAMATE 25 MG TABLET PO SCH ×2 (08:10→21:04)
[2021-07-07] MEDS: ESCITALOPRAM 10MG TABLET PO SCH (08:10)
[2021-07-07] MEDS: LORATADINE 10 MG TABLET PO SCH (08:10)
[2021-07-07] MEDS: ACAMPROSATE 333 MG TABLET.DR PO SCH ×3 (08:10→21:04)
[2021-07-07] MEDS: NICOTINE 14MG/24 HR PATCH.TD24 TD SCH (08:11)
[2021-07-07] MEDS: PRAZOSIN 1 MG CAPSULE PO SCH ×2 (08:25→21:04)
[2021-07-07] MEDS: BACITRACIN/POLYMIXIN B SULFATE OINT 14 GM TP SCH ×2 (08:38→21:00)
[2021-07-07] MEDS: IBUPROFEN 600 MG TABLET PO PRN (16:30)
[2021-07-07 19:14] VITALS: BP 102/70
[2021-07-07] MEDS: DOXEPIN 25 MG CAPSULE PO SCH (21:04)
[2021-07-08] MEDS: hydrOXyzine 50MG TABLET PO SCH ×4 (06:19→19:53)
[2021-07-08 08:00] VITALS: BP 121/71
[2021-07-08] MEDS: TOPIRAMATE 25 MG TABLET PO SCH ×2 (08:31→19:53)
[2021-07-08] MEDS: ESCITALOPRAM 10MG TABLET PO SCH (08:31)
[2021-07-08] MEDS: LORATADINE 10 MG TABLET PO SCH (08:31)
[2021-07-08] MEDS: ACAMPROSATE 333 MG TABLET.DR PO SCH ×3 (08:31→19:52)
[2021-07-08] MEDS: PRAZOSIN 1 MG CAPSULE PO SCH ×2 (08:31→19:53)
[2021-07-08] MEDS: CEFDINIR 300 MG CAPSULE PO SCH ×2 (08:31→19:53)
[2021-07-08] MEDS: NICOTINE 14MG/24 HR PATCH.TD24 TD SCH (08:32)
[2021-07-08] MEDS: BACITRACIN/POLYMIXIN B SULFATE OINT 14 GM TP SCH ×2 (08:33→20:03)
[2021-07-08] MEDS: IBUPROFEN 600 MG TABLET PO PRN ×2 (10:38→19:53)
[2021-07-08 19:27] VITALS: BP 120/78
[2021-07-08] MEDS: DOXEPIN 25 MG CAPSULE PO SCH (19:53)
[2021-07-09] MEDS: hydrOXyzine 50MG TABLET PO SCH ×4 (06:30→20:54)
[2021-07-09 07:55] VITALS: BP 109/67
[2021-07-09] MEDS: LORATADINE 10 MG TABLET PO SCH (08:17)
[2021-07-09] MEDS: ESCITALOPRAM 10MG TABLET PO SCH (08:17)
[2021-07-09] MEDS: NICOTINE 14MG/24 HR PATCH.TD24 TD SCH (08:17)
[2021-07-09] MEDS: TOPIRAMATE 25 MG TABLET PO SCH ×2 (08:17→20:34)
[2021-07-09] MEDS: PRAZOSIN 1 MG CAPSULE PO SCH ×2 (08:17→20:33)
[2021-07-09] MEDS: ACAMPROSATE 333 MG TABLET.DR PO SCH ×3 (08:17→20:34)
[2021-07-09] MEDS: CEFDINIR 300 MG CAPSULE PO SCH ×2 (08:17→20:34)
[2021-07-09] MEDS: BACITRACIN/POLYMIXIN B SULFATE OINT 14 GM TP SCH ×2 (09:43→21:00)
[2021-07-09] MEDS ORDERED: TOPI25TA32 PO (13:15)
[2021-07-09] MEDS ORDERED: CEFD300C37 PO (13:15)
[2021-07-09] MEDS ORDERED: NICO-486 TD (13:15)
[2021-07-09] MEDS ORDERED: DOXE25CA PO (13:15)
[2021-07-09] MEDS: IBUPROFEN 600 MG TABLET PO PRN (15:22)
[2021-07-09 19:33] VITALS: BP 109/72
[2021-07-09] MEDS: DOXEPIN 25 MG CAPSULE PO SCH (20:34)
[2021-07-10] MEDS: hydrOXyzine 50MG TABLET PO SCH ×2 (06:04→09:18)
[2021-07-10 07:23] VITALS: BP 117/76
[2021-07-10] MEDS: BACITRACIN/POLYMIXIN B SULFATE OINT 14 GM TP SCH (09:00)
[2021-07-10] MEDS: NICOTINE 14MG/24 HR PATCH.TD24 TD SCH (09:00)
[2021-07-10] MEDS: ESCITALOPRAM 10MG TABLET PO SCH (09:18)
[2021-07-10] MEDS: CEFDINIR 300 MG CAPSULE PO SCH (09:18)
[2021-07-10] MEDS: TOPIRAMATE 25 MG TABLET PO SCH (09:18)
[2021-07-10] MEDS: ACAMPROSATE 333 MG TABLET.DR PO SCH (09:18)
[2021-07-10] MEDS: LORATADINE 10 MG TABLET PO SCH (09:18)
[2021-07-10] MEDS: PRAZOSIN 1 MG CAPSULE PO SCH (09:18)
== END 2021-07-10 10:00 | disposition home or self-care (01) | DRG 885 ==
LOC: 3E 17:46
PROVIDERS: ADMIT Psychiatry & Neurology Psychosomatic Medicine; ATTEND Psychiatry & Neurology Psychosomatic Medicine
DX: F25.0 Schizoaffective disorder, bipolar type (principal); Z68.44 Body mass index [BMI] 60.0-69.9, adult; N39.0 Urinary tract infection, site not specified; E66.9 Obesity, unspecified; F43.10 Post-traumatic stress disorder, unspecified; F60.3 Borderline personality disorder; F63.9 Impulse disorder, unspecified; G47.00 Insomnia, unspecified; J45.909 Unspecified asthma, uncomplicated; Z20.822 Contact with and (suspected) exposure to COVID-19; Z79.899 Other long term (current) drug therapy
CPT/HCPCS: 36415; 71045; 80053; 80061; 80299; 80307; 80320; 80329; 81001; 84439; 84443; 84703; 85025; 87086; 87147; 87426; 93005; U0005; G0480; U0003

== ENCOUNTER 2021-07-17 14:45 | Emergency (ER) | payer MEDICAID ==
[~2021-07-17] VITALS: Ht 165.1 cm; Wt 186.2 kg
[~2021-07-17 14:45] MED LIST changes: +CEFD300C37 PO; +CHOL10003 PO; +DOXE25CA PO; +LORA1TAB46 PO; +PALI156D IM; +TOPI25TA32 PO; +TOPI25TA52 PO
[2021-07-17] MEDS ORDERED: ACAMPROSATE 333 MG TABLET.DR PO SCH (16:00)
--- NOTE | 2021-07-17 16:13 | NUR ---
PATIENT ROOMED TO ROOM 40. PATIENT ON LEGAL HOLD. PATIENT PLACED IN GOWN, ALL BELONGINGS OBTAINED AND PLACED IN SAFE KEEPING LABELED WITH PATIENT INFORMATION. ROOM SECURE.
--- NOTE | 2021-07-17 16:26 | NUR ---
SENIOR CONTRACT SPECIALIST AT BEDSIDE TO WATCH PATIENT
--- NOTE | 2021-07-17 16:37 | NUR ---
BELONGING LIST COMPLETED AND ATTACHED TO CHART. 02/18 BAGS/ITEMS PLACED IN LOCKED CABINET. PATIENT WITH HER OWN HOME CPAP AND REQUESTS TO USE IT AT NIGHT. PATIENT CURRENTLY ON PERIOD, THIS RN ALLOWED PATIENT TO USE HER OWN UNDERWEAR AND PROVIDED HOSPITAL PADS FOR PATIENT. ALLOWED PATIENT TO HAVE HER OWN BOOK WHILE IN ROOM.
[2021-07-17 16:54] LABS: BASOPHILS % (AUTO) 1 % (0-1); EOSINOPHILS % (AUTO) 1 % (1-7); LYMPHOCYTES % (AUTO) 27 % (22-44); MEAN CORPUSCULAR HEMOGLOBIN 26.4 pg (27.0-34.8); MEAN CORPUSCULAR HGB CONC 33.1 g/dL (32.4-35.8); MEAN PLATELET VOLUME 7.8 fL (7.4-10.4); MONOCYTES % (AUTO) 6 % (2-9); NEUTROPHILS % (AUTO) 65 % (42-75); PLATELET COUNT 298 x10^3/uL (130-400); RED BLOOD COUNT 5.11 x10^6/uL (3.82-5.3); RED CELL DISTRIBUTION WIDTH 15.6 % (9.6-15.2)
[2021-07-17 17:01] LABS: ALBUMIN 3.2 g/dL (3.4-5.0); ANION GAP 8 mmol/L (5-15); CALCIUM 8.7 mg/dL (8.5-10.1); CHLORIDE 113 mmol/L (98-107); CREATININE 0.85 mg/dL (0.55-1.02); SALICYLATE LEVEL 2.6 mg/dL (2.8-20.0)
[2021-07-17 17:02] LABS: HCG UR SG 1.025 (1.003-1.030)
[2021-07-17 17:07] LABS: MICROSCOPIC INDICATED
[2021-07-17 17:10] LABS: AMPHETAMINE SCREEN, URINE Negative (Negative); BARBITURATE SCREEN, URINE Negative (Negative); BENZODIAZEPINE SCREEN, URINE Negative (Negative); CANNABINOID SCREEN, URINE Negative (Negative); COCAINE SCREEN, URINE Negative (Negative); METHADONE SCREEN, URINE Negative (Negative); OPIATE SCREEN, URINE Negative (Negative)
[2021-07-17 17:10] LABS: ALANINE AMINOTRANSFERASE 27 U/L (12-78); ALKALINE PHOSPHATASE 170 U/L (45-117); BILIRUBIN,TOTAL 0.2 mg/dL (0.2-1.0); TOTAL PROTEIN 7.8 g/dL (6.4-8.2)
--- NOTE | 2021-07-17 17:20 | NUR ---
MED JUDI FROM PHARMACY.
--- NOTE | 2021-07-17 17:40 | NUR ---
ED SAFETY DIET TRAY DELIVERED.
[2021-07-17] MEDS ORDERED: FOSFOMYCIN 3 GM PACKET ONE ×2 (17:42→19:03)
[2021-07-17] MEDS ORDERED: FOSFOMYCIN 3 GM PACKET PO ONE (17:45)
--- NOTE | 2021-07-17 18:00 | NUR ---
TELEPHONE CALL TO PHARM REGARDING DELAY.
--- NOTE | 2021-07-17 18:28 | NUR ---
RECEIVED MED FROM PHARMACY, PT MEDICATED PER EMAR. RESTING ON GURNEY W/ GARAGE DOORS DOWNX2 AND SITTER OUTSIDE FOR SAFETY. COVID TEST NEGATIVE, AWAITING U ADMIT.
--- NOTE | 2021-07-17 18:58 | NUR ---
REPORT TO DINAH MOONEY ON [facility]. REQUESTING TO WAIT TIL 07 FOR TRANSFER UPSTAIRS. HOLLIS MOONEY AWARE. PT RESTING ON GURNEY W/ GARAGE DOORS DOWNX2 AND SITTER OUTSIDE ROOM FOR SAFETY. RESP EVEN AND UNLABORED, BRIGITTE. Addendum: 07/17/21 at 1903 by CBRUCIAGA REPORT TO DINAH MOONEY ON [facility]. REQUESTING TO WAIT TIL 1929 FOR TRANSFER UPSTAIRS. HOLLIS MOONEY AWARE. PT RESTING ON GURNEY W/ GARAGE DOORS DOWNX2 AND SITTER OUTSIDE ROOM FOR SAFETY. RESP EVEN AND UNLABOREDBRIGITTE.
--- NOTE | 2021-07-17 19:07 | NUR ---
REPORT FROM JESICA GARNICA
[2021-07-17] MEDS ORDERED: hydrOXyzine 50MG TABLET ONE (19:11)
--- NOTE | 2021-07-17 19:20 | NUR ---
MED REQUEST TUBED TO PHARMACY
--- NOTE | 2021-07-17 20:09 | NUR ---
PT PROVIDED PM MEDS. AWAITING TRANSPORT UPSTAIRS
[2021-07-17] MEDS ORDERED: TOPIRAMATE 25 MG TABLET PO SCH (21:00)
[2021-07-17] MEDS ORDERED: HYDROXYZINE PAMOATE 50MG CAP PO SCH (21:00)
[2021-07-17] MEDS ORDERED: PRAZOSIN 2 MG CAPSULE PO SCH (21:00)
[2021-07-17] MEDS ORDERED: DOXEPIN 25 MG CAPSULE PO SCH (21:00)
[2021-07-17] MEDS ORDERED: PRAZOSIN 5 MG CAPSULE PO SCH (21:00)
[2021-07-17] MEDS ORDERED: DOXE50CA PO (23:53)
[2021-07-17] MEDS ORDERED: TOPI25TA32 PO (23:53)
[2021-07-17] MEDS ORDERED: HYDR50TA99 PO (23:53)
[2021-07-17] MEDS ORDERED: PRAZ2CAP2 PO (23:53)
[2021-07-17] MEDS ORDERED: ESCI20TA10 PO (23:53)
[2021-07-17] MEDS ORDERED: PRAZ1CAP2 PO (23:53)
[2021-07-18] MEDS ORDERED: PRAZOSIN 1 MG CAPSULE PO SCH (09:00)
[2021-07-18] MEDS ORDERED: ESCITALOPRAM 10MG TABLET PO SCH (09:00)
[2021-07-18] MEDS ORDERED: TOPI25TA8 PO (17:59)
[2021-07-18] MEDS ORDERED: PRAZ2CAP2 PO (17:59)
[2021-07-18] MEDS ORDERED: DOXE50CA PO (17:59)
[2021-07-18] MEDS ORDERED: PRAZ1CAP2 PO (17:59)
[2021-07-18] MEDS ORDERED: ACAM333T7 PO (17:59)
[2021-07-18] MEDS ORDERED: ESCI20TA10 PO (17:59)
== END 2021-07-17 16:00 ==
LOC: ED 15:50
DX: S50.812A Abrasion of left forearm, initial encounter (principal); S50.811A Abrasion of right forearm, initial encounter; R45.851 Suicidal ideations; Z20.822 Contact with and (suspected) exposure to COVID-19; X58.XXXA Exposure to other specified factors, initial encounter; Y93.89 Activity, other specified; Y92.89 Other specified places as the place of occurrence of the external cause; Y99.8 Other external cause status
CPT/HCPCS: 36415; 80053; 80299; 80307; 80320; 80329; 81001; 81025; 85025; 87086; 87426; 99285; G0480

== ENCOUNTER 2021-07-17 17:29 | Inpatient (IN) | payer MEDICAID ==
[~2021-07-17] VITALS: Ht 167.6 cm; Wt 191.0 kg
[2021-07-17] MEDS ORDERED: BISACODYL 10 MG SUPP PR PRN (19:30)
[2021-07-17] MEDS ORDERED: POLYETHYLENE GLYCOL 17 GM PACKET PO PRN (19:30)
[2021-07-17] MEDS ORDERED: DOCUSATE 100 MG CAPSULE PO PRN (19:30)
[2021-07-17] MEDS ORDERED: ONDANSETRON ODT 4 MG PO PRN (19:30)
[2021-07-17 21:00] VITALS: BP 114/76
[2021-07-17 22:51] LABS: MICROSCOPIC INDICATED
[2021-07-17] MEDS ORDERED: ALBUTEROL SULFATE 2.5 MG/3 ML NPPB PRN (23:00)
[2021-07-17] MEDS ORDERED: PRAZ1CAP2 PO (23:53)
[2021-07-17] MEDS ORDERED: HYDR50TA99 PO (23:53)
[2021-07-17] MEDS ORDERED: DOXE50CA PO (23:53)
[2021-07-17] MEDS ORDERED: TOPI25TA32 PO (23:53)
[2021-07-17] MEDS ORDERED: PRAZ2CAP2 PO (23:53)
[2021-07-17] MEDS ORDERED: ESCI20TA10 PO (23:53)
[2021-07-17 23:59] VITALS: BP 114/76
[2021-07-18 08:13] VITALS: BP 136/84
[2021-07-18] MEDS ORDERED: TOPIRAMATE 25 MG TABLET PO SCH (09:00)
[2021-07-18] MEDS: NICOTINE 14MG/24 HR PATCH.TD24 TD SCH (09:13)
[2021-07-18] MEDS: ESCITALOPRAM 10MG TABLET PO SCH (09:19)
[2021-07-18] MEDS: PRAZOSIN 1 MG CAPSULE PO SCH (09:20)
[2021-07-18] MEDS: HYDROXYZINE PAMOATE 50MG CAP PO SCH ×3 (13:32→20:25)
[2021-07-18] MEDS ORDERED: CALCIUM CARBONATE 500 MG TAB.CHEW PO PRN (16:30)
[2021-07-18] MEDS ORDERED: ACAM333T7 PO (17:59)
[2021-07-18] MEDS ORDERED: ESCI20TA10 PO (17:59)
[2021-07-18] MEDS ORDERED: PRAZ1CAP2 PO (17:59)
[2021-07-18] MEDS ORDERED: TOPI25TA8 PO (17:59)
[2021-07-18] MEDS ORDERED: DOXE50CA PO (17:59)
[2021-07-18] MEDS ORDERED: PRAZ2CAP2 PO (17:59)
[2021-07-18 19:13] VITALS: BP 92/65
[2021-07-18 19:43] VITALS: BP 111/74
[2021-07-18] MEDS: DOXEPIN 25 MG CAPSULE PO SCH (20:24)
[2021-07-18] MEDS: ACAMPROSATE 333 MG TABLET.DR PO SCH (20:24)
[2021-07-18] MEDS: PRAZOSIN 2 MG CAPSULE PO SCH (20:24)
[2021-07-18] MEDS: TOPIRAMATE 100 MG TABLET PO SCH (20:24)
[2021-07-19] MEDS: OMEPRAZOLE 20 MG CAPSULE.DR PO SCH (05:57)
[2021-07-19 07:16] VITALS: BP 120/73
[2021-07-19] MEDS: ACAMPROSATE 333 MG TABLET.DR PO SCH ×3 (08:35→20:49)
[2021-07-19] MEDS: ESCITALOPRAM 10MG TABLET PO SCH (08:36)
[2021-07-19] MEDS: HYDROXYZINE PAMOATE 50MG CAP PO SCH ×3 (08:37→20:50)
[2021-07-19] MEDS: PRAZOSIN 1 MG CAPSULE PO SCH (08:37)
[2021-07-19] MEDS: TOPIRAMATE 100 MG TABLET PO SCH ×2 (08:37→20:50)
[2021-07-19] MEDS: NICOTINE 14MG/24 HR PATCH.TD24 TD SCH (08:38)
[2021-07-19 19:20] VITALS: BP 106/69
[2021-07-19] MEDS: PRAZOSIN 2 MG CAPSULE PO SCH (20:49)
[2021-07-19] MEDS: DOXEPIN 25 MG CAPSULE PO SCH (20:50)
[2021-07-19] MEDS ORDERED: ALBUTEROL HFA 90 MCG/SPRAY INH PRN (23:30)
[2021-07-20] MEDS: OMEPRAZOLE 20 MG CAPSULE.DR PO SCH (06:07)
[2021-07-20] MEDS: HYDROXYZINE PAMOATE 50MG CAP PO SCH ×4 (06:07→19:54)
[2021-07-20 07:08] VITALS: BP 111/58
[2021-07-20] MEDS: PRAZOSIN 1 MG CAPSULE PO SCH (08:27)
[2021-07-20] MEDS: NICOTINE 14MG/24 HR PATCH.TD24 TD SCH (08:27)
[2021-07-20] MEDS: ACAMPROSATE 333 MG TABLET.DR PO SCH ×3 (08:27→19:54)
[2021-07-20] MEDS: TOPIRAMATE 100 MG TABLET PO SCH ×2 (08:27→19:54)
[2021-07-20] MEDS: ESCITALOPRAM 10MG TABLET PO SCH (08:27)
[2021-07-20 19:33] VITALS: BP 111/60
[2021-07-20] MEDS: PRAZOSIN 2 MG CAPSULE PO SCH (19:54)
[2021-07-20] MEDS: DOXEPIN 25 MG CAPSULE PO SCH (19:54)
[2021-07-21] MEDS: OMEPRAZOLE 20 MG CAPSULE.DR PO SCH (06:27)
[2021-07-21] MEDS: HYDROXYZINE PAMOATE 50MG CAP PO SCH ×4 (06:27→21:02)
[2021-07-21 07:33] VITALS: BP 110/70
[2021-07-21] MEDS: ACAMPROSATE 333 MG TABLET.DR PO SCH ×3 (08:30→21:02)
[2021-07-21] MEDS: TOPIRAMATE 100 MG TABLET PO SCH ×2 (08:30→21:03)
[2021-07-21] MEDS: ESCITALOPRAM 10MG TABLET PO SCH (08:30)
[2021-07-21] MEDS: NICOTINE 14MG/24 HR PATCH.TD24 TD SCH (08:31)
[2021-07-21] MEDS: PRAZOSIN 1 MG CAPSULE PO SCH (08:34)
[2021-07-21] MEDS: IBUPROFEN 200 MG TABLET PO PRN (12:39)
[2021-07-21 19:36] VITALS: BP 100/67
[2021-07-21] MEDS: DOXEPIN 25 MG CAPSULE PO SCH (21:02)
[2021-07-21] MEDS: PRAZOSIN 2 MG CAPSULE PO SCH (21:03)
[2021-07-22 05:55] VITALS: BP 114/73
[2021-07-22] MEDS: HYDROXYZINE PAMOATE 50MG CAP PO SCH ×4 (06:03→20:53)
[2021-07-22] MEDS: OMEPRAZOLE 20 MG CAPSULE.DR PO SCH (06:03)
[2021-07-22] MEDS: ACAMPROSATE 333 MG TABLET.DR PO SCH ×3 (08:23→20:51)
[2021-07-22] MEDS: PRAZOSIN 1 MG CAPSULE PO SCH (08:23)
[2021-07-22] MEDS: NICOTINE 14MG/24 HR PATCH.TD24 TD SCH (08:23)
[2021-07-22] MEDS: TOPIRAMATE 100 MG TABLET PO SCH ×2 (08:23→20:52)
[2021-07-22] MEDS: ESCITALOPRAM 10MG TABLET PO SCH (08:23)
[2021-07-22] MEDS: ACETAMINOPHEN 325 MG TABLET PO PRN (14:49)
[2021-07-22 19:33] VITALS: BP 129/70
[2021-07-22] MEDS: PRAZOSIN 2 MG CAPSULE PO SCH (20:52)
[2021-07-22] MEDS: DOXEPIN 25 MG CAPSULE PO SCH (20:53)
[2021-07-23] MEDS: OMEPRAZOLE 20 MG CAPSULE.DR PO SCH (05:55)
[2021-07-23] MEDS: HYDROXYZINE PAMOATE 50MG CAP PO SCH ×4 (05:55→20:18)
[2021-07-23 08:00] VITALS: BP 115/83
[2021-07-23] MEDS: NICOTINE 14MG/24 HR PATCH.TD24 TD SCH (08:26)
[2021-07-23] MEDS: TOPIRAMATE 100 MG TABLET PO SCH ×2 (08:26→20:18)
[2021-07-23] MEDS: ACAMPROSATE 333 MG TABLET.DR PO SCH ×3 (08:26→20:17)
[2021-07-23] MEDS: ESCITALOPRAM 10MG TABLET PO SCH (08:26)
[2021-07-23] MEDS: PRAZOSIN 1 MG CAPSULE PO SCH (08:26)
[2021-07-23] MEDS: ACETAMINOPHEN 325 MG TABLET PO PRN (13:04)
[2021-07-23] MEDS: IBUPROFEN 200 MG TABLET PO PRN (13:19)
[2021-07-23 19:52] VITALS: BP 109/72
[2021-07-23] MEDS: DOXEPIN 25 MG CAPSULE PO SCH (20:18)
[2021-07-23] MEDS: PRAZOSIN 2 MG CAPSULE PO SCH (20:18)
[2021-07-24] MEDS: OMEPRAZOLE 20 MG CAPSULE.DR PO SCH (05:55)
[2021-07-24] MEDS: HYDROXYZINE PAMOATE 50MG CAP PO SCH ×4 (05:55→21:04)
[2021-07-24 08:30] VITALS: BP 117/76
[2021-07-24] MEDS: NICOTINE 14MG/24 HR PATCH.TD24 TD SCH (09:26)
[2021-07-24] MEDS: ACAMPROSATE 333 MG TABLET.DR PO SCH ×3 (09:27→21:03)
[2021-07-24] MEDS: PALIPERIDONE 3 MG TAB.ER.24 PO SCH (09:27)
[2021-07-24] MEDS: ESCITALOPRAM 10MG TABLET PO SCH (09:27)
[2021-07-24] MEDS: TOPIRAMATE 100 MG TABLET PO SCH ×2 (09:28→21:04)
[2021-07-24] MEDS: PRAZOSIN 1 MG CAPSULE PO SCH (09:36)
[2021-07-24 19:24] VITALS: BP 121/80
[2021-07-24] MEDS: PRAZOSIN 2 MG CAPSULE PO SCH (21:04)
[2021-07-24] MEDS: DOXEPIN 25 MG CAPSULE PO SCH (21:04)
[2021-07-25] MEDS: OMEPRAZOLE 20 MG CAPSULE.DR PO SCH (06:06)
[2021-07-25] MEDS: HYDROXYZINE PAMOATE 50MG CAP PO SCH ×4 (06:06→20:04)
[2021-07-25 07:23] VITALS: BP 131/53
[2021-07-25] MEDS: ESCITALOPRAM 10MG TABLET PO SCH (08:38)
[2021-07-25] MEDS: ACAMPROSATE 333 MG TABLET.DR PO SCH ×3 (08:38→20:04)
[2021-07-25] MEDS: PALIPERIDONE 3 MG TAB.ER.24 PO SCH (08:38)
[2021-07-25] MEDS: TOPIRAMATE 100 MG TABLET PO SCH ×2 (08:38→20:04)
[2021-07-25] MEDS: NICOTINE 14MG/24 HR PATCH.TD24 TD SCH (08:38)
[2021-07-25] MEDS: PRAZOSIN 1 MG CAPSULE PO SCH (08:40)
[2021-07-25 19:07] VITALS: BP 113/75
[2021-07-25] MEDS: DOXEPIN 25 MG CAPSULE PO SCH (20:03)
[2021-07-25] MEDS: PRAZOSIN 2 MG CAPSULE PO SCH (20:04)
[2021-07-26] MEDS: OMEPRAZOLE 20 MG CAPSULE.DR PO SCH (06:15)
[2021-07-26] MEDS: HYDROXYZINE PAMOATE 50MG CAP PO SCH ×4 (06:15→20:35)
[2021-07-26 07:34] VITALS: BP 100/66
[2021-07-26] MEDS: PRAZOSIN 1 MG CAPSULE PO SCH (08:14)
[2021-07-26] MEDS: SERTRALINE 50MG TABLET PO SCH (08:14)
[2021-07-26] MEDS: PALIPERIDONE 3 MG TAB.ER.24 PO SCH (08:14)
[2021-07-26] MEDS: ACAMPROSATE 333 MG TABLET.DR PO SCH ×3 (08:14→20:35)
[2021-07-26] MEDS: TOPIRAMATE 100 MG TABLET PO SCH ×2 (08:14→20:35)
[2021-07-26] MEDS: NICOTINE 14MG/24 HR PATCH.TD24 TD SCH (08:36)
[2021-07-26 19:10] VITALS: BP 98/64
[2021-07-26] MEDS: PRAZOSIN 2 MG CAPSULE PO SCH (20:35)
[2021-07-26] MEDS: DOXEPIN 25 MG CAPSULE PO SCH (20:35)
[2021-07-27] MEDS: OMEPRAZOLE 20 MG CAPSULE.DR PO SCH (06:18)
[2021-07-27] MEDS: HYDROXYZINE PAMOATE 50MG CAP PO SCH ×4 (06:18→20:25)
[2021-07-27 07:30] VITALS: BP 123/79
[2021-07-27] MEDS: ACAMPROSATE 333 MG TABLET.DR PO SCH ×3 (08:26→20:24)
[2021-07-27] MEDS: NICOTINE 14MG/24 HR PATCH.TD24 TD SCH (08:27)
[2021-07-27] MEDS: TOPIRAMATE 100 MG TABLET PO SCH ×2 (08:27→20:21)
[2021-07-27] MEDS: PALIPERIDONE 3 MG TAB.ER.24 PO SCH (08:27)
[2021-07-27] MEDS: SERTRALINE 50MG TABLET PO SCH (08:27)
[2021-07-27] MEDS: PRAZOSIN 1 MG CAPSULE PO SCH (08:27)
[2021-07-27 10:46] LABS: MICROSCOPIC AUTO
[2021-07-27] MEDS: IBUPROFEN 200 MG TABLET PO PRN (12:51)
[2021-07-27 19:43] VITALS: BP 113/77
[2021-07-27] MEDS: DOXEPIN 25 MG CAPSULE PO SCH (20:21)
[2021-07-27] MEDS: PRAZOSIN 2 MG CAPSULE PO SCH (20:23)
[2021-07-28] MEDS: HYDROXYZINE PAMOATE 50MG CAP PO SCH ×4 (06:00→21:06)
[2021-07-28] MEDS: OMEPRAZOLE 20 MG CAPSULE.DR PO SCH (06:19)
[2021-07-28 07:13] VITALS: BP 107/72
[2021-07-28] MEDS: SERTRALINE 50MG TABLET PO SCH (08:11)
[2021-07-28] MEDS: ACAMPROSATE 333 MG TABLET.DR PO SCH ×3 (08:11→21:07)
[2021-07-28] MEDS: PRAZOSIN 1 MG CAPSULE PO SCH (08:11)
[2021-07-28] MEDS: PALIPERIDONE 3 MG TAB.ER.24 PO SCH (08:11)
[2021-07-28] MEDS: TOPIRAMATE 100 MG TABLET PO SCH ×2 (08:11→21:06)
[2021-07-28] MEDS: NICOTINE 14MG/24 HR PATCH.TD24 TD SCH (08:12)
[2021-07-28 19:18] VITALS: BP 108/67
[2021-07-28] MEDS: DOXEPIN 25 MG CAPSULE PO SCH (21:06)
[2021-07-28] MEDS: PRAZOSIN 2 MG CAPSULE PO SCH (21:07)
[2021-07-29] MEDS: OMEPRAZOLE 20 MG CAPSULE.DR PO SCH (06:12)
[2021-07-29] MEDS: HYDROXYZINE PAMOATE 50MG CAP PO SCH ×4 (06:12→20:08)
[2021-07-29 07:58] VITALS: BP 111/76
[2021-07-29] MEDS: ACAMPROSATE 333 MG TABLET.DR PO SCH ×3 (09:00→20:08)
[2021-07-29] MEDS: NICOTINE 14MG/24 HR PATCH.TD24 TD SCH (09:00)
[2021-07-29] MEDS: PALIPERIDONE 3 MG TAB.ER.24 PO SCH (09:00)
[2021-07-29] MEDS: PRAZOSIN 1 MG CAPSULE PO SCH (09:00)
[2021-07-29] MEDS: TOPIRAMATE 100 MG TABLET PO SCH ×2 (09:00→20:08)
[2021-07-29] MEDS: IBUPROFEN 200 MG TABLET PO PRN (09:10)
[2021-07-29] MEDS: SERTRALINE 50MG TABLET PO SCH (09:10)
[2021-07-29 19:12] VITALS: BP 115/73
[2021-07-29] MEDS: PRAZOSIN 2 MG CAPSULE PO SCH (20:08)
[2021-07-29] MEDS: DOXEPIN 25 MG CAPSULE PO SCH (20:08)
[2021-07-30] MEDS: OMEPRAZOLE 20 MG CAPSULE.DR PO SCH (06:09)
[2021-07-30] MEDS: HYDROXYZINE PAMOATE 50MG CAP PO SCH ×4 (06:09→20:10)
[2021-07-30 07:19] VITALS: BP 101/67
[2021-07-30] MEDS: TOPIRAMATE 100 MG TABLET PO SCH ×2 (09:04→20:10)
[2021-07-30] MEDS: ACAMPROSATE 333 MG TABLET.DR PO SCH ×3 (09:04→20:10)
[2021-07-30] MEDS: SERTRALINE 50MG TABLET PO SCH (09:04)
[2021-07-30] MEDS: PALIPERIDONE 3 MG TAB.ER.24 PO SCH (09:04)
[2021-07-30] MEDS: PRAZOSIN 1 MG CAPSULE PO SCH (09:04)
[2021-07-30] MEDS: NICOTINE 14MG/24 HR PATCH.TD24 TD SCH (09:08)
[2021-07-30] MEDS ORDERED: PALI3TAB11 PO (13:11)
[2021-07-30] MEDS ORDERED: HYDR50CA2 PO (13:11)
[2021-07-30] MEDS ORDERED: PRAZ2CAP2 PO (13:11)
[2021-07-30] MEDS ORDERED: SERT50TA28 PO (13:11)
[2021-07-30] MEDS ORDERED: ACAM333T7 PO (13:11)
[2021-07-30] MEDS ORDERED: ALBU18HF INH (13:11)
[2021-07-30] MEDS ORDERED: OMEP-110 PO (13:11)
[2021-07-30] MEDS ORDERED: DOXE25CA PO (13:11)
[2021-07-30] MEDS ORDERED: PRAZ1CAP2 PO (13:11)
[2021-07-30] MEDS ORDERED: TOPI100T24 PO (13:11)
[2021-07-30] MEDS: DOXEPIN 25 MG CAPSULE PO SCH (20:10)
[2021-07-30] MEDS: PRAZOSIN 2 MG CAPSULE PO SCH (20:10)
[2021-07-30 20:16] VITALS: BP 118/79
[2021-07-31] MEDS: HYDROXYZINE PAMOATE 50MG CAP PO SCH ×2 (05:57→09:19)
[2021-07-31] MEDS: OMEPRAZOLE 20 MG CAPSULE.DR PO SCH (05:57)
[2021-07-31] MEDS: PRAZOSIN 1 MG CAPSULE PO SCH (09:19)
[2021-07-31] MEDS: SERTRALINE 50MG TABLET PO SCH (09:19)
[2021-07-31] MEDS: PALIPERIDONE 3 MG TAB.ER.24 PO SCH (09:19)
[2021-07-31] MEDS: ACAMPROSATE 333 MG TABLET.DR PO SCH (09:19)
[2021-07-31] MEDS: TOPIRAMATE 100 MG TABLET PO SCH (09:19)
[2021-07-31] MEDS: NICOTINE 14MG/24 HR PATCH.TD24 TD SCH (09:20)
== END 2021-07-31 10:30 | disposition home or self-care (01) | DRG 885 ==
LOC: 3E 21:26
PROVIDERS: ADMIT Psychiatry & Neurology Psychosomatic Medicine; ATTEND Psychiatry & Neurology Psychosomatic Medicine
DX: F25.0 Schizoaffective disorder, bipolar type (principal); F06.4 Anxiety disorder due to known physiological condition; R45.851 Suicidal ideations; F17.210 Nicotine dependence, cigarettes, uncomplicated; F41.1 Generalized anxiety disorder; F43.10 Post-traumatic stress disorder, unspecified; F60.3 Borderline personality disorder; F63.9 Impulse disorder, unspecified; E66.01 Morbid (severe) obesity due to excess calories; G47.00 Insomnia, unspecified; J45.909 Unspecified asthma, uncomplicated; K21.9 Gastro-esophageal reflux disease without esophagitis; S41.119A Laceration without foreign body of unspecified upper arm, initial encounter; W22.01XA Walked into wall, initial encounter; X58.XXXA Exposure to other specified factors, initial encounter; Y93.89 Activity, other specified; Z79.899 Other long term (current) drug therapy; Y92.89 Other specified places as the place of occurrence of the external cause; Y99.8 Other external cause status
CPT/HCPCS: 36415; 71045; 80053; 80299; 80307; 80320; 80329; 81001; 81025; 85025; 87077; 87086; 87147; 87426; 93005; 99285; G0480